=== PATIENT | female | born 1950 | race Caucasian/White ===

== ENCOUNTER → 2020-02-12 09:03 | Outpatient (CLI) | payer MEDICARE, SELFPAY ==
--- NOTE | ~2020-02-12 | XR_ITS ---
EXAMINATION: HAND-ANUPAM ARTHRITIS 3+VIEWS DATE: 02/12/2020 09:19 INDICATION: Joint pain and swelling in the hands. TECHNIQUE: Posteroanterior, lateral, and oblique views of the left and of the right hands as well as a ballcatchers view of both hands were obtained. COMPARISON: None. FINDINGS: No fracture or traumatic malalignment. Polyarticular osteoarthritis in the bilateral hands characteri zed by nonuniform joint space narrowing and marginal osteophyte formation. This is advanced at multip le interphalangeal joints where there are also central erosions with gullwing configuration at the ba se of multiple phalanges consistent with erosive osteoarthritis. There is secondary mild dorsal/ulnar subluxation at the bilateral third proximal interphalangeal joints. Additional severe osteoarthritis at the bilateral first carpometacarpal, left triscaphe and several bilateral metacarpophalangeal mana nts. Mild osteoarthritis at the right triscaphe joint and at the bilateral wrists joints. Chondrocalc inosis is seen in the region of the left hydronephrosis cartilage complex. There are multiple scatter ed small lucent lesions with thin sclerotic margins and majority underlying articular surfaces likely representing degenerative subchondral cysts. There are however couple of the ulnar styloid processes which would be more atypical and could be related to chronic erosions. IMPRESSION: 1. 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 2. Likely chronic erosions at the bilateral ulnar styloid processes which along with the chondrocalci nosis at the left wrist suggests suggesting possible superimposed crystalline arthropathy such as gou t or calcium pyrophosphate deposition (CPPD) disease. Reviewed, dictated and finalized at location A. IMPRESSION: 1. 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 2. Likely chronic erosions at the bilateral ulnar styloid processes which along with the chondrocalcinosis at the left wrist suggests suggesting possible supe rimposed crystalline arthropathy such as gout or calcium pyrophosphate depositi on (CPPD) disease.
== END ==
PROVIDERS: PCP Family Medicine; Visit Provider Family Medicine
DX: M19.041 Primary osteoarthritis, right hand (principal); M19.042 Primary osteoarthritis, left hand
CPT/HCPCS: 73130

== ENCOUNTER 2020-07-20 13:30 | Outpatient (RCR) | payer MEDICARE, SELFPAY ==
[2020-07-20] MEDS: FAMOTIDINE 20 MG TABLET PO (13:25)
[2020-07-20] MEDS: diphenhydrAMINE HCl CAP 25 MG CAPSULE PO (13:26)
[2020-07-20] MEDS: ACETAMINOPHEN 325 MG TABLET 650 MG PO (13:26)
--- NOTE | 2020-07-20 13:30 | PC.NURSE ---
Patient with mild headache, productive cough of yellow phlegm.
[2020-07-20 14:02] VITALS: BP 144/97; PULSE 72; RESP 18; TEMP 36.7; O2SAT 97
--- NOTE | 2020-07-20 14:38 | PC.NURSE ---
Patient given Bamlanivimab discharge and facts sheet with understanding stated by patient.
[2020-07-20 15:30] VITALS: BP 153/85
--- NOTE | 2020-07-20 16:21 | PC.NURSE ---
Bamlanivimab started at 1415 and ended at 1515.
--- NOTE | 2020-07-21 15:13 | PC.NURSE ---
Patient had chills, rigors, and fever after infusion at approximately 8 pm at home. Patient took Tylenol and Benadryl and symptoms went away after approximately 2 hours . Patient did talk to primary care physician, Dr Spain. Patient today feels the same as she did yesterday at infusion time-productive cough, nasal drainage, and headache.
== END 2020-08-02 11:23 ==
LOC: AMCINF 13:30
PROVIDERS: PCP Family Medicine; Visit Provider Family Medicine
DX: Z23 Encounter for immunization (principal); U07.1 COVID-19; I10 Essential (primary) hypertension; Z85.3 Personal history of malignant neoplasm of breast
CPT/HCPCS: A9270; J7050; M0239; Q0239

== ENCOUNTER → 2021-02-25 02:31 | Outpatient (CLI) | payer MEDICARE, SELFPAY ==
[2021-02-25 20:11] LABS: SARS-CoV-2 RNA PCR Negative
== END ==
PROVIDERS: PCP Family Medicine; Visit Provider Family Medicine
DX: R05 Cough (principal); R11.0 Nausea; R09.89 Other specified symptoms and signs involving the circulatory and respiratory systems; Z20.822 Contact with and (suspected) exposure to COVID-19
CPT/HCPCS: C9803; U0003; U0005

== ENCOUNTER → 2021-11-03 14:41 | Outpatient (CLI) | payer MEDICARE, SELFPAY ==
--- NOTE | ~2021-11-03 | MR_ITS ---
. EXAMINATION: MR lumbar spine wo con DATE: 11/03/2021 15:20 INDICATION: Spinal stenosis, lumbosacral region. TECHNIQUE: Magnetic resonance imaging (MRI) of the lumbar spine was performed without intravenous con trast. Sequences included sagittal T2-weighted FSE, sagittal T2-weighted FS FSE, sagittal T1-weighted FSE, and axial T2-weighted FSE. COMPARISON: Lumbar spine MRI 02/26/2014 FINDINGS: There is 4 mm retrolisthesis of L1 on L2, 7 mm retrolisthesis of L2 on L3, 6 mm anterolisth esis of L3 on L4, and 9 mm anterolisthesis of L4 on L5. There is mildly decreased disc height at T12- L1 and severely decreased disc height from L1-L2 through L4-L5. There is interbody fusion at L3-L4 an d L4-L5. There are changes of anterior fusion procedure at L5-S1 with interbody devices and healed in terbody bone graft. There are changes of posterior fusion procedure from L3 to S1 with pedicle screws . The distal spinal cord signal intensity is normal. The conus medullaris is at L1. The following dis c levels are specifically discussed: T12-L1: There is a central extrusion. There is no facet joint osteoarthritis. There is no neural fora wayne stenosis. There is mild central canal stenosis. L1-L2: The disc is bulging and has an annular fissure. There is severe bilateral facet joint osteoart hritis. There is moderate right and mild left neural foraminal stenosis. There is mild central canal stenosis. L2-L3: The disc is bulging and has an annular fissure. There is severe bilateral facet joint osteoart hritis. There is severe bilateral neural foraminal stenosis. There is mild bilateral central canal st enosis. There is moderate stenosis of left lateral recess. L3-L4: There is moderate bilateral facet joint hypertrophy. There is moderate right and mild left wei ral foraminal stenosis. There is mild central canal stenosis. L4-L5: There is mild bilateral facet joint hypertrophy. There is mild bilateral neural foraminal sten osis. There is no central canal stenosis. There is posterior decompression. L5-S1: There is no facet joint hypertrophy. There is no neural foraminal stenosis. There is no centra l canal stenosis. IMPRESSION: 1. Severe lumbar spondylosis, worsened from 02/26/2014. 2. Posterior fusion procedure from L3 to S1. Anterior fusion from L3 to S1. Reviewed, dictated and finalized at location A.
== END ==
PROVIDERS: PCP Family Medicine; Visit Provider Family Medicine
DX: Z98.1 Arthrodesis status (principal); M47.815 Spondylosis without myelopathy or radiculopathy, thoracolumbar region; M48.05 Spinal stenosis, thoracolumbar region; M47.817 Spondylosis without myelopathy or radiculopathy, lumbosacral region; M48.07 Spinal stenosis, lumbosacral region
CPT/HCPCS: 72148

== ENCOUNTER 2022-02-15 16:35 | Emergency (ER) | payer MEDICARE, SELFPAY ==
[2022-02-15] VITALS (7 sets, daily range): BP systolic 65–126; BP diastolic 37–81; PULSE 48–67; RESP 14–31; TEMP 35.9; O2SAT 96–98
--- NOTE | ~2022-02-15 | XR_ITS ---
EXAM: XR pelvis 1-2V DATE: 02/15/2022 18:10 HISTORY: Fall this P.M. . COMPARISON: 09/27/2006. FINDINGS: Incompletely visualized lumbar fusion hardware. Decreased mineralization. No fracture or di slocation. No lytic or blastic lesion. Joint spaces are maintained. No erosion or periosteal change. Soft tissues within normal limits. IMPRESSION: No acute osseous finding in the pelvis. Reviewed, dictated and finalized at location K.
--- NOTE | ~2022-02-15 | CT_ITS ---
EXAMINATION: CT facial & cervical spine wo DATE: 02/15/2022 17:44 INDICATION: fall TECHNIQUE: Computed tomography (CT) of the maxillofacial region and cervical spine was performed with out intravenous contrast. Automated exposure control and iterative reconstruction technique were empl oyed. The dose-length product was 443.23 mGy-cm. COMPARISON: None FINDINGS: CERVICAL: Vertebral Body Alignment: Presumed degenerative 1-2 mm anterolistheses of C3 on C4, C4 on C5, and C7 on T1, otherwise intact. Craniocervical and atlantoaxial alignment: Moderate degenerative change. Alignment intact. Osseous structures/fracture: No evidence of a lytic or blastic process in the visualized spine. No e vidence of acute fracture. Cervical soft tissues: The paraspinal soft tissues planes are maintained. Aortic arch ectasia and gregoria cification. Degenerative changes: Multilevel severe degenerative disc disease, with fusion from C4 to C6. Multile damian severe left-sided neural foraminal narrowing. No severe central canal narrowing. FACE: Soft Tissues: Mild left frontal soft tissue swelling. Facial bones: No acute fracture. No lytic or blastic process. Eyes: The globes are intact. The soft tissue planes of the orbits are maintained. Bilateral lens re placements. Paranasal Sinuses: Complete opacification of the right maxillary sinus, otherwise the visualized aer ated spaces are clear. Foreign Bodies: No radiopaque foreign bodies. Other Findings: None. IMPRESSION: No acute fracture or traumatic malalignment in the cervical spine. No acute facial bone fracture. Reviewed, dictated and finalized at location K. IMPRESSION: No acute fracture or traumatic malalignment in the cervical spine. No acute fac ial bone fracture.
--- NOTE | ~2022-02-15 | CT_ITS ---
EXAMINATION: CT brain wo con DATE: 02/15/2022 17:43 INDICATION: fall . TECHNIQUE: Computed tomography (CT) of the head was performed without intravenous contrast. The mA wa s adjusted according to patient size. Iterative reconstruction technique was employed. The dose-lengt h product was 605.33 mGy-cm. COMPARISON: None FINDINGS: No acute intracranial hemorrhage or extra-axial fluid collection. No hydrocephalus, mass, or herniation. No acute ischemic infarct. Unremarkable dural venous sinus attenuation. No acute osseous abnormality. Small left frontal contusion. Right maxillary opacification, otherwise the aerated spaces are clear. Mild atrophy and chronic white matter change. Atherosclerotic intracranial calcification. Bilateral l ens replacements. IMPRESSION: No acute intracranial process. Reviewed, dictated and finalized at location K.
--- NOTE | ~2022-02-15 | XR_ITS ---
EXAMINATION: XR chest 1V portable Exam Date/Time: 02/15/2022 17:58 CDT HISTORY: Fall; hx of breast CA Comparison: 11/20/2017. RESULT: Lines, tubes, and devices: Left axillary clips. Lungs and pleura: Clear. Cardiomediastinal silhouette: Stable. Other: No acute osseous or upper abdominal finding. IMPRESSION: No acute cardiopulmonary process. Reviewed, dictated and finalized at location K.
--- NOTE | ~2022-02-15 | CT_ITS ---
EXAMINATION: CT thoracic spine wo con DATE: 02/15/2022 17:44 INDICATION: Fall . TECHNIQUE: Computed tomography (CT) of the thoracic spine was performed without intravenous contrast. Automated exposure control and iterative reconstruction technique were employed. The dose-length pro duct was 1214.99 mGy-cm. COMPARISON: None FINDINGS: Minimal grade 1 anterolistheses of C7 on T1, and T3 on T4, otherwise the vertebral body alignment is intact. Vertebral body heights preserved. Multilevel degenerative disc space narrowing, marginal oste ophytosis, with scattered erosive changes, most severe at T2-3. No traumatic malalignment or fracture . Visualized lung parenchyma is clear. Multilevel facet arthropathy Mild aortic, mitral, and coronary calcifications. Aortic arch atherosclerotic calcification. Simple and hemorrhagic/proteinaceous righ t mid pole cysts. The upper portion of lumbar fusion hardware is seen at the margin of the images. IMPRESSION: No acute fracture or traumatic malalignment in the thoracic spine. Reviewed, dictated and finalized at location K.
--- NOTE | 2022-02-15 16:56 | ECG_ITS ---
Measurements Intervals [place] Rate: 46 P: 42 [place]: 179 QRS: 3 QRSD: 107 T: 12 QT: 501 QTc: 442 Interpretive Statements SINUS BRADYCARDIA OTHERWISE NORMAL NO PREVIOUS ECG AVAILABLE FOR COMPARISON Electronically Signed On 02-15-2022 18:47:57 CDT by Samanta Valderrama M.D.
[2022-02-15 17:14] LABS: Basophils Absolute Auto 0.1 K/mm3 (0.0-0.1); Basophils Percent Auto 0.7 % (0.2-1.2); Eosinophils Absolute Auto 0.1 K/mm3 (0-0.3); Eosinophils Percent Auto 1.7 % (0-4.4); Hematocrit 37.5 % (37.0-47.0); Hemoglobin 12.1 g/dL (12.0-15.0); Immature Granulocyte Absolute 0.03 K/mm3 (0.00-0.031); Immature Granulocyte Percent A 0.4 % (0-0.5); Lymphocytes Absolute Auto 1.85 K/mm3 (0.9-3.2); Lymphocytes Percent Auto 21.9 % (18.3-44.2); Mean Corpuscular HGB Conc 32.3 g/dl (32-36); Mean Corpuscular Hemoglobin 30.1 pg (26-34); Mean Corpuscular Volume 93.3 fl (80-100); Mean Platelet Volume 10.8 fl (7.4-10.4); Monocytes Absolute Auto 0.7 K/mm3 (0.1-0.6); Monocytes Percent Auto 8.6 % (2.6-8.5); Neutrophils Absolute Auto 5.6 K/mm3 (1.3-6.7); Neutrophils Percent Auto 66.7 % (45.5-73.1); Platelet Count Result 200 k/mm3 (150-375); Red Blood Count 4.02 M/mm3 (4.2-5.4); Red Cell Distribution Width 13.3 % (11.5-14.5); White Blood Count 8.4 K/mm3 (4.5-10.0)
[2022-02-15 17:21] LABS: Alanine Aminotransferase 24 U/L (6-35); Alkaline Phosphatase 58 U/L (38-126); Anion Gap 10 mmol/L (8-16); Aspartate Amino Transferase 32 U/L (14-36); Bilirubin,Total 0.5 mg/dL (0.2-1.3); Blood Urea Nitrogen 30 mg/dL (7-17); Carbon Dioxide 27 mmol/L (22-30); Chloride 94 mmol/L (98-107); Estimated CRCL calculation 43 ml/min; Estimated Glomerular Filt Rate 54; Glucose 115 mg/dL (65-110); Potassium 3.2 mmol/L (3.4-5.0); Sodium 131 mmol/L (137-145)
--- NOTE | 2022-02-15 17:28 | PC.NURSE ---
Pt in CT at this time
[2022-02-15] MEDS: HYDROcodone/acetaminophen (*CRX) 5-325 MG TABLET 1 TAB PO (17:48)
--- NOTE | 2022-02-15 18:44 | PC.NURSE ---
called to add on trop baseline @1545 -NC
--- NOTE | 2022-02-15 18:47 | PC.NURSE ---
C collar removed at this time
[2022-02-15 19:40] LABS: Troponin I < 0.012 ng/mL (0.000-0.034)
--- NOTE | 2022-02-15 21:18 | ED.GENADULT ---
HPI - General Adult General Chief complaint: Fall Stated complaint: lip lac, head/neck pain Time Seen by Provider: 02/15/22 16:59 History of Present Illness HPI narrative: This is a 71-year-old female presenting to ED with a cut on her upper lip. Patient was attempting to move a diverticulosis of water when she lost her balance and fell face 1st into the edge. She has a small laceration over her lip on the left side. The patient is up-to-date on her tetanus shot. She is currently complaining of neck pain and shoulder pain. While she was in the lobby the patient had a presyncopal event. Before the event occurred she felt plumbing drafter her ears and then sat down without ever losing consciousness. She did not strike her head have any injuries. She quickly returned to her baseline. Patient has a well-documented history of vasovagal syncope and has been worked up by her tailer in in the past. The patient denies any other complaints at this time. Related Data Home Medications Medication Instructions Recorded Confirmed calcium carbonate 600 mg calcium 600 mg PO DAILY 11/04/19 01/10/22 (1,500 mg) tablet (Calcium) raloxifene 60 mg tablet 60 mg PO DAILY 03/02/21 01/10/22 levocetirizine 5 mg tablet (Xyzal) 5 mg PO DAILY 01/10/22 01/10/22 Allergies Allergy/AdvReac Type Severity Reaction Status Date / Time adhesive tape Allergy Unknown Rash Verified 02/15/22 16:48 cephalexin Allergy Unknown throat Verified 02/15/22 16:48 closing diazepam Allergy Unknown mental Verified 02/15/22 16:48 status change Penicillins Allergy Unknown unknown Verified 02/15/22 16:48 Review of Systems Review of Systems: CONSTITUTIONAL: Denies night sweats. EYES: No eye pain ENT: Denies rhinorrhea CARDIOVASCULAR: Denies palpitations RESPIRATORY: Denies hemoptysis GASTROINTESTINAL: Denies hematemesis GENITOURINARY: Denies hematuria. SKIN: Denies rash MUSCULOSKELETAL: Denies myalgia. NEUROLOGIC: Denies weakness. PSYCHIATRIC: Denies delusions PMFSH Past Medical History Medical History Arthralgia of hand Atypical chest pain Chest pain COVID-19 Drug-induced polyneuropathy Hepatitis C antibody test negative (03/11/19) HX: breast cancer Surgical History Surgical History Hx of breast biopsy negative Family History Family History Father Family history of glaucoma Family history of Alzheimer's disease Family history of dementia, Onset Age: 80 Mother Family history of glaucoma Hypertension Cerebrovascular accident Sibling Family history of glaucoma Malignant neoplasm of prostate Family history of malignant neoplasm of breast in first degree relative Other Family history of elevated blood lipids Family history of malignant neoplasm of breast Social History Social History Second hand tobacco smoke exposure: No Alcohol intake: current Drinks per week: 4 Substance use type: does not use Gender identity (if verbalized by the patient): Female Sexual Orientation (if Verbalized by the Patient): Straight or Heterosexual Spiritual care concerns: No Agree to blood products: Yes Exam Narrative: APPEARANCE: No apparent distress. Patient is lying in bed the C-collar on. Head 1.5 cm vertical laceration over the left upper lip crossing the vermilion border. EYES: PERRLA/EOMI, NOSE: Normal no drainage NECK: Supple, Trachea midline , midline cervical tenderness. RESPIRATORY: CTAB, No increased work of breathing. CARDIOVASCULAR: S1S2 appreciated ABDOMINAL: Soft, nontender, nondistended, MUSCULOSKELETAl: No obvious deformities NEURO: Alert. Cranial nerves 2-12 grossly intact. Sensation light touch, motor function cerebellar function intact for 4 extremities. Gait exam was deferred S
== END 2022-02-15 20:20 | disposition left against medical advice (07) ==
PROVIDERS: Emergency Medicine; Emergency Provider Emergency Medicine; PCP Family Medicine
DX: S01.511A Laceration without foreign body of lip, initial encounter (principal); R55 Syncope and collapse; R00.1 Bradycardia, unspecified; F17.210 Nicotine dependence, cigarettes, uncomplicated; Z86.16 Personal history of COVID-19; Z85.3 Personal history of malignant neoplasm of breast; W19.XXXA Unspecified fall, initial encounter
CPT/HCPCS: 12011; 36415; 70450; 70486; 71045; 72125; 72128; 72170; 80053; 84484; 85025; 93005; 99284; A9270

== ENCOUNTER 2022-12-06 13:30 | Outpatient (RCR) | payer MEDICARE, SELFPAY ==
--- NOTE | 2022-10-02 13:44 | PTOPEVAL1 ---
Assessment and note entered by Shell Schaefer, PT, DPT Evaluation Information Assessment Status Evaluation Diagnosis gait abnormalities Onset multiple years Subjective Information Pt states she does not walk like a normal person. She states she has a L2-S1 lumbar fusion, and a L TKA in Apr. Pt states she waddles when she walks and walking does not feel normal. She reports feeling unstable on her feet, avoids walking on uneven surfaces, and has had a couple of falls, her most recent in February of last year. Reported Pain Level Pain Score 0: Self Report Assessment PT Clinical Summary Vee presents to therapy today for her initial evaluation with a diagnosis of gait and balance deviations. Today she demonstrates baljeet LE weakness , particularly in her hips that is likely adding to her gait deviations. She demonstrates decreased balance and according to the GALLAGHER balance assessment is at an increased risk for falls. Skilled physical therapy services are indicated to address balance and strength deficits, to improve functional mobility, improve safety, and to promote functional independence. Plan of Care Interventions Gait Training,Hot Pack/Cold Pack,Manual Therapy, Neuro Re-education,Patient/Caregiver Educati, Therapeutic Activities,Therapeutic Exercise PT Services Indicated Yes Treatment Frequency and 2x/wk for 4 wks Duration These treatments will address the objective and functional deficits as defined above. The patient will be advanced safely and appropriately in order for the patient to progress towards his/her prior level of function. Additional exercises will be introduced and as well as a comprehensive home exercise program upon discharge, if needed, ?to ensure carryover of functional gains achieved in the clinic. This treatment plan has been reviewed and agreement upon by the patient.
--- NOTE | 2022-10-30 16:47 | PTOPPROG ---
Assessment and note entered by Shell Schaefer, PT, DPT Evaluation Information Assessment Status Progress Diagnosis gait abnormalities Onset multiple years Subjective Information Pt states she has learned a lot with therapy. She states she is progressing with therapy but not where she needs to be yet. She reports fair compliance with her HEP. Pt reports 20-30% improvement in overall symptoms. Assessment PT Clinical Summary Vee presents to therapy today for her progress report following 8 visits of skilled therapy to treat her gait abnormalities. Today she demonstrates an improved distance during the 2 min walk test from 355ft to 435ft but without an improvement in gait deviations. She demonstrates an improved GALLAGHER balance score from 42/56 to 47/56 . She continues to have moderate weakness throughout her BLEs. Continuation of skilled therapy services are indicated to continue improving strength, balance, mobility, and endurance, and to improve overall functional independence. Plan of Care Interventions Gait Training,Hot Pack/Cold Pack,Manual Therapy, Neuro Re-education,Patient/Caregiver Educati, Therapeutic Activities,Therapeutic Exercise PT Services Indicated Yes Treatment Frequency and 2x/wk for 4 wks Duration These treatments will address the objective and functional deficits as defined above. The patient will be advanced safely and appropriately in order for the patient to progress towards his/her prior level of function. Additional exercises will be introduced and as well as a comprehensive home exercise program upon discharge, if needed, ?to ensure carryover of functional gains achieved in the clinic. This treatment plan has been reviewed and agreement upon by the patient.
--- NOTE | 2022-12-06 14:44 | PTOPPROG ---
Assessment and note entered by Shell Schaefer, PT, DPT Evaluation Information Assessment Status Progress Diagnosis gait abnormalities Onset multiple years Subjective Information Pt states she is improving, she states her left knee is getting stronger and she is doing stairs more easily. She also states she can walk normally for about 30 steps prior to getting tired and starting to compensate again. Pt reports 50-60% improvement in overall symptoms. She states she is lacking muscular endurance. Assessment PT Clinical Summary Vee presents to therapy today for her progress report following 16 visits of skilled therapy to treat her gait abnormalities. Today she demonstrates improve hip and knee strength, improve standing balance, and improved ability to ambulate stairs. She continues to require increased UE support for stairs and continues to have a strong Trendelenburg pattern during ambulation. She is making continuous progress towards her goals. Continuation of skilled services are indicated to continue progressing strength, balance, mobility, and to return to PLOF . Plan of Care Interventions Gait Training,Hot Pack/Cold Pack,Manual Therapy, Neuro Re-education,Patient/Caregiver Educati, Therapeutic Activities,Therapeutic Exercise PT Services Indicated Yes Treatment Frequency and 1x/wk for 4 wks Duration These treatments will address the objective and functional deficits as defined above. The patient will be advanced safely and appropriately in order for the patient to progress towards his/her prior level of function. Additional exercises will be introduced and as well as a comprehensive home exercise program upon discharge, if needed, ?to ensure carryover of functional gains achieved in the clinic. This treatment plan has been reviewed and agreement upon by the patient.
--- NOTE | 2022-12-13 14:01 | PCPTNOTE ---
Patient called to cancel, had a test this morning and was in a fib. Will be in touch about the rest of her appointments.
--- NOTE | 2022-12-27 10:48 | PCPTNOTE ---
Patient canceled this date due to having surgery. Will follow up with patient and therapist to discuss plan of care.
--- NOTE | 2022-12-29 15:52 | PCPTNOTE ---
This treatment is being continued on visit number [id number]. Please see documentation on both accounts to view progress. Completed interventions, outcomes, and problems have been marked as Inactive to facilitate the copying of the Care plan routine for recurring accounts.
== END 2022-12-28 14:55 | disposition still patient (30) ==
LOC: ANHGOSHPT 13:30
PROVIDERS: PCP Family Medicine; Visit Provider Family Medicine
DX: R26.9 Unspecified abnormalities of gait and mobility (principal)
CPT/HCPCS: 97110; 97112; 97116; 97161; 97530

== ENCOUNTER 2022-12-26 13:55 | Day surgery (SDC) | payer MEDICARE, SELFPAY ==
[2022-12-25 13:56] VITALS: BMI 37.2
[2022-12-26] VITALS (7 sets, daily range): BP systolic 137–156; BP diastolic 87–113; PULSE 70–89; RESP 15–20; TEMP 36.6; O2SAT 97–99; BMI 37.2
--- NOTE | 2022-12-26 13:00 | ECG_ITS ---
Measurements Intervals [place] Rate: 85 P: RI: 0 QRS: -15 QRSD: 93 T: 39 QT: 376 QTc: 449 Interpretive Statements ATRIAL FIBRILLATION ABNORMAL RHYTHM ECG COMPARED TO ECG 02/15/2022 16:59:39 ATRIAL FIBRILLATION NOW PRESENT Electronically Signed On 12-26-2022 16:21:13 CDT by Scout Dillon M.D.
--- NOTE | 2022-12-26 14:16 | WPDHPUPDATE1 ---
History and Physical Update Update Date/Time: 12/26/22 14:16 History and Physical has been reviewed, including an updated exam of the patient. There are NO changes in the patient's condition. Vee Potts Is a 72-year-old female who sees Dr. Lebron for a coronary myocardial bridge hypertension, hyperlipidemia and vasovagal near-syncope. On her last visit 12/13/2022 she was found to have atrial fibrillation, new head of uncertain duration with a mildly rapid rate. Her metoprolol was increased from 25-50 mg daily and Eliquis was added. She is here for a ANDREW guided cardioversion. Risks, benefits, and alternatives have been discussed and questions answered. Patient agrees to proceed with procedure.
--- NOTE | 2022-12-26 14:17 | WPDMODSED ---
Moderate Sedation Note-Pt Data Patient Data Diagnosis: Recent onset of atrial fibrillation History of vasovagal syncope which occurs postop and at other times. History of hypertension Present Complaint: fatigue, poor endurance, recent onset AFib Procedure to be performed/Plan: Sedation with anesthesia ANDREW guided cardioversion Allergies Allergy/AdvReac Type Severity Reaction Status Date / Time adhesive tape Allergy Unknown Rash Verified 12/26/22 13:31 cephalexin Allergy Unknown throat Verified 12/26/22 13:31 closing diazepam Allergy Unknown mental Verified 12/26/22 13:31 status change Penicillins Allergy Unknown unknown Verified 12/26/22 13:31 Home Medications Medication Instructions Recorded Confirmed Type nitroglycerin 0.3 mg sublingual 0.3 mg sublingual Q5M PRN chest 06/24/19 12/26/22 Rx tablet (Nitrostat) pain #20 tabs calcium carbonate 600 mg calcium 600 mg PO DAILY 11/04/19 12/26/22 History (1,500 mg) tablet (Calcium) raloxifene 60 mg tablet 60 mg PO DAILY 03/02/21 12/26/22 History levocetirizine 5 mg tablet (Xyzal) 5 mg PO DAILY 01/10/22 12/26/22 History diclofenac sodium 50 mg See Rx Instructions .Route 01/20/22 12/26/22 Rx tablet,delayed release .COMPLEX #180 tabs hydrochlorothiazide 12.5 mg tablet See Rx Instructions .Route 01/20/22 12/26/22 Rx .COMPLEX #90 tabs oxybutynin chloride 5 mg tablet See Rx Instructions .Route 02/21/22 12/26/22 Rx .COMPLEX #180 tabs atorvastatin 20 mg tablet See Rx Instructions .Route 06/02/22 12/26/22 Rx .COMPLEX #90 tabs cholecalciferol (vitamin D3) 50 50 mcg PO DAILY 06/09/22 12/26/22 History mcg (2,000 unit) capsule cpap #1 ea 12/06/22 12/06/22 Rx metoprolol succinate 25 mg 25 mg PO DAILY #90 tabs 12/06/22 12/26/22 Rx tablet,extended release 24 hr miscellaneous medical supply See Rx Instructions miscellaneous 12/06/22 12/26/22 Rx .COMPLEX #1 ea apixaban 5 mg tablet (Eliquis) 5 mg PO DAILY 12/26/22 12/26/22 History Current Medications: Active Medications Sodium Chloride (Normal Saline Iv) 1,000 mls @ 30 mls/hr IV CONT .Q24H MARIXA Sedation/Anesthesia: No previous sedation/anesthesia problems (including family history). [facility] Past Medical History Medical History (Updated 12/26/22 @ 14:19 by Samanta Valderrama MD) Arthralgia of hand Atrial fibrillation Atypical chest pain Chest pain COVID-19 Drug-induced polyneuropathy Hepatitis C antibody test negative (03/11/19) HX: breast cancer Syncope, vasovagal Surgical History Surgical History History of total left knee replacement (~04/2022) Hx of breast biopsy negative Family History Family History Father Family history of glaucoma Family history of Alzheimer's disease Family history of dementia, Onset Age: 80 Mother Family history of glaucoma Hypertension Cerebrovascular accident Sibling Family history of glaucoma Malignant neoplasm of prostate Family history of malignant neoplasm of breast in first degree relative Other Family history of elevated blood lipids Family history of malignant neoplasm of breast Social History Social History Smoking status: Never smoker Second hand tobacco smoke exposure: No Alcohol intake: current Drinks per week: 3 Substance use: never Substance use type: does not use Lack of Transportation: No Lack of Food: Never True Current Housing: I Have Housing Concerned About Future Housing: No Difficulty Paying Gas/Electric Bills: No Difficulty Paying for Meds: No Currently Unemployed: No Education: Master's Degree or Higher Difficulty w/ Childcare or Family Care: No Living arrangements: with family Occupation/Education: retired Gender identity (if verbalized by the patient): Female Sexual Orientation (if Verbalize
[2022-12-26 15:03] LABS: Anion Gap 6 mmol/L (8-16); Blood Urea Nitrogen 26 mg/dL (7-17); Calcium 8.7 mg/dL (8.4-10.2); Carbon Dioxide 26 mmol/L (22-30); Chloride 103 mmol/L (98-107); Estimated CRCL calculation 59 ml/min; Estimated Glomerular Filt Rate > 60; Glucose 83 mg/dL (65-110); Magnesium 1.9 mg/dL (1.6-2.3); Potassium 3.7 mmol/L (3.4-5.0); Sodium 135 mmol/L (137-145)
--- NOTE | 2022-12-26 15:18 | WPDANESEPPF ---
Anes - Initial Pre Proc Eval Procedure: Operation Date: 12/21/22 11:00 Proposed Procedures p Trans Esophageal Echo - Lenny Lebron MD s Electrical Cardioversion - Lenny Lebron MD Operation Date: 12/26/22 14:30 Proposed Procedures p Trans Esophageal Echo - Samanta Valderrama MD s Electrical Cardioversion - Samanta Valderrama MD Date/Time: 12/26/22 15:18 Surgeon: Lenny Lebron MD Pre Op Diagnosis: A-fib(RVR) Patient Data Age: 72 Gender: F Height: 1.52 m Weight: 86.4 kg Last Vital Signs Temp 97.8 F 12/26/22 13:37 Pulse 85 12/26/22 13:37 Resp 18 12/26/22 13:37 BP 156/112 H 12/26/22 13:37 Pulse Ox 99 12/26/22 13:37 O2 Del Method Room Air 12/26/22 13:37 Allergies Allergy/AdvReac Type Severity Reaction Status Date / Time adhesive tape Allergy Unknown Rash Verified 12/26/22 13:31 cephalexin Allergy Unknown throat Verified 12/26/22 13:31 closing diazepam Allergy Unknown mental Verified 12/26/22 13:31 status change Penicillins Allergy Unknown unknown Verified 12/26/22 13:31 Home Medications Medication Instructions Recorded Confirmed Type nitroglycerin 0.3 mg sublingual 0.3 mg sublingual Q5M PRN chest 06/24/19 12/26/22 Rx tablet (Nitrostat) pain #20 tabs calcium carbonate 600 mg calcium 600 mg PO DAILY 11/04/19 12/26/22 History (1,500 mg) tablet (Calcium) raloxifene 60 mg tablet 60 mg PO DAILY 03/02/21 12/26/22 History levocetirizine 5 mg tablet (Xyzal) 5 mg PO DAILY 01/10/22 12/26/22 History diclofenac sodium 50 mg See Rx Instructions .Route 01/20/22 12/26/22 Rx tablet,delayed release .COMPLEX #180 tabs hydrochlorothiazide 12.5 mg tablet See Rx Instructions .Route 01/20/22 12/26/22 Rx .COMPLEX #90 tabs oxybutynin chloride 5 mg tablet See Rx Instructions .Route 02/21/22 12/26/22 Rx .COMPLEX #180 tabs atorvastatin 20 mg tablet See Rx Instructions .Route 06/02/22 12/26/22 Rx .COMPLEX #90 tabs cholecalciferol (vitamin D3) 50 50 mcg PO DAILY 06/09/22 12/26/22 History mcg (2,000 unit) capsule cpap #1 ea 12/06/22 12/06/22 Rx metoprolol succinate 25 mg 25 mg PO DAILY #90 tabs 12/06/22 12/26/22 Rx tablet,extended release 24 hr miscellaneous medical supply See Rx Instructions miscellaneous 12/06/22 12/26/22 Rx .COMPLEX #1 ea apixaban 5 mg tablet (Eliquis) 5 mg PO DAILY 12/26/22 12/26/22 History Laboratory Tests 12/26/22 12/26/22 14:03 14:36 Sodium Pending 135 L mmol/L (137-145) Potassium Pending 3.7 mmol/L (3.4-5.0) Chloride Pending 103 mmol/L (98-107) Carbon Dioxide Pending 26 mmol/L (22-30) Anion Gap Pending 6 L mmol/L (8-16) BUN Pending 26 H mg/dL (7-17) Creatinine Pending 0.70 mg/dL (0.7-1.0) Estim Creat Clear Calc Pending 59 ml/min Estimated GFR Pending > 60 (59 - ) Glucose Pending 83 mg/dL (65-110) Calcium Pending 8.7 mg/dL (8.4-10.2) Magnesium Pending 1.9 mg/dL (1.6-2.3) Patient hx anesthesia problems: none Family hx anesthesia problems: none Results Review: All pre-operative results and documents have been reviewed as part of the pre-operative evaluation. [facility] Past Medical History Medical History (Updated 12/26/22 @ 14:19 by Samanta Valderrama MD) Arthralgia of hand Atrial fibrillation Atypical chest pain Chest pain COVID-19 Drug-induced polyneuropathy Hepatitis C antibody test negative (03/11/19) HX: breast cancer Syncope, vasovagal Surgical History Surgical History History of total left knee replacement (~04/2022) Hx of breast biopsy negative Family History Family History Father Family history of glaucoma Family history of Alzheimer's disease Family history of dementia, Onset Age: 80 Mother Family history of glaucoma Hypertension Cerebrovascular accident Sibling F
--- NOTE | 2022-12-26 15:52 | PM.OP ---
Procedure Note - Brief Procedure Note - Brief Date of procedure: 12/26/22 A-fib(RVR) Post-op diagnosis: Other ( AFib, clot in the left atrial appendage) Procedure performed: sedation with anesthesia Transesophageal echo Surgeon: Samanta Valderrama MD Description of procedure: ANDREW showed a mobile mass, thrombus, the left atrial appendage. No cardioversion was performed. The ANDREW was quite abbreviated as the patient became hypoxic and anesthesia request to ANDREW probe to be removed. Complications: No immediate complications (Other than transient hypoxia) Condition: Stable Disposition: Observation
--- NOTE | 2022-12-26 15:54 | P.OP_ITS ---
Procedure Note - Detailed Date of Procedure 12/26/22 Pre-op Diagnosis A-fib(RVR) Post-op Diagnosis Other ( AFib, left atrial appendage thrombus) Procedure Performed Sedation with Anesthesia Transesophageal echo Cardioversion cancelled Surgeon Samanta Valderrama MD Anesthesia MAC ( see anesthesia flow sheet) Indications symptomatic AFib of recent onset Findings Left atrial appendage thrombus, mobile. Grossly normal left ventricular function. Transient hypoxia and rapid atrial fib rate Cardioversion cancelled. PLAN: Continue Eliquis 5 mg BID FU w/ Dr. Lebron to determine if another attempt at cardioversion is recommended after at least 4 weeks of anticoagulation. Anesthesia thought it would be reasonable from their point of view, perhaps w/ a change in anesthetics . Description of Procedure Procedure: After informed consent the patient had Hurricaine spray the hypopharynx. The patient had anesthesia as described in anesthesia flow sheet. The transesophageal echo probe was introduced in the esophagus without difficulty. Imaging was obtained in multiplane views. The procedure was very abbreviated as the patient became hypoxic and hypopnec, with O2 saturation dropping down into the 50s and 60s, required Ambu bagging and increased O2. The probe was immediately removed. Findings: The left atrium was mildly dilated. There was some mild spontaneous contrast noted. In addition there was a 0.8 X 1.3 oblong mobile mass seen in the left atrial appendage. This was not investigated well as the patient became hypoxic. The left ventricle and valves were not evaluated any detail although the mitral valve appeared grossly normal and the left ventricular function was grossly normal. No Doppler was done. The patient had transient rapid ventricular rate but no problems w/ low blood pressure. Complications No immediate complications (Transient hypoxia required Ambu bagging noted) Condition Stable Disposition Observation
== END 2022-12-26 16:58 | disposition home or self-care (01) ==
PROVIDERS: Internal Medicine Cardiovascular Disease; PCP Family Medicine; Visit Provider Internal Medicine Cardiovascular Disease
PROC: (CPT 93312; principal; 2022-12-26 14:30)
DX: I48.91 Unspecified atrial fibrillation (principal); I51.3 Intracardiac thrombosis, not elsewhere classified; R09.02 Hypoxemia; Z53.09 Procedure and treatment not carried out because of other contraindication; Z79.01 Long term (current) use of anticoagulants; G62.0 Drug-induced polyneuropathy; Z85.3 Personal history of malignant neoplasm of breast; E66.9 Obesity, unspecified; Z68.37 Body mass index [BMI] 37.0-37.9, adult
CPT/HCPCS: 36415; 80048; 83735; 93312; 93320; 93325; J2704

== ENCOUNTER 2023-01-29 02:08 | Day surgery (SDC) | payer MEDICARE, SELFPAY ==
--- NOTE | 2023-01-26 18:10 | WPDANESEPP ---
Anes - Eval Pre Procedure Procedure: Operation Date: 01/29/23 14:30 Proposed Procedures p Trans Esophageal Echo - Lenny Lebron MD s Possible Electrical Cardioversion - Lenny Lebron MD Date/Time: 01/26/23 18:10 Pre Op Diagnosis: a- fib rvr Patient Data Age: 72 Gender: F Height: Weight: Allergies Allergy/AdvReac Type Severity Reaction Status Date / Time adhesive tape Allergy Unknown Rash Verified 01/26/23 15:44 cephalexin Allergy Unknown throat Verified 01/26/23 15:44 closing diazepam Allergy Unknown mental Verified 01/26/23 15:44 status change Penicillins Allergy Unknown unknown Verified 01/26/23 15:44 Home Medications Medication Instructions Recorded Confirmed Type nitroglycerin 0.3 mg sublingual 0.3 mg sublingual Q5M PRN chest 06/24/19 01/26/23 Rx tablet (Nitrostat) pain #20 tabs calcium carbonate 600 mg calcium 600 mg PO DAILY 11/04/19 01/26/23 History (1,500 mg) tablet (Calcium) raloxifene 60 mg tablet 60 mg PO DAILY 03/02/21 01/26/23 History levocetirizine 5 mg tablet (Xyzal) 5 mg PO DAILY 01/10/22 01/26/23 History diclofenac sodium 50 mg See Rx Instructions .Route 01/20/22 01/26/23 Rx tablet,delayed release .COMPLEX #180 tabs hydrochlorothiazide 12.5 mg tablet See Rx Instructions .Route 01/20/22 01/26/23 Rx .COMPLEX #90 tabs atorvastatin 20 mg tablet See Rx Instructions .Route 06/02/22 01/26/23 Rx .COMPLEX #90 tabs cholecalciferol (vitamin D3) 50 50 mcg PO DAILY 06/09/22 01/26/23 History mcg (2,000 unit) capsule cpap #1 ea 12/06/22 12/06/22 Rx metoprolol succinate 25 mg 25 mg PO DAILY #90 tabs 12/06/22 01/26/23 Rx tablet,extended release 24 hr miscellaneous medical supply See Rx Instructions miscellaneous 12/06/22 01/26/23 Rx .COMPLEX #1 ea apixaban 5 mg tablet (Eliquis) 5 mg PO DAILY 12/26/22 01/26/23 History oxybutynin chloride 5 mg tablet See Rx Instructions .Route 01/03/23 01/26/23 Rx .COMPLEX #180 tabs semaglutide (weight loss) 0.25 0.25 mg (0.5 mL) subcut WEEKLY #2 01/03/23 01/26/23 Rx mg/0.5 mL subcutaneous pen mL injector (Wegovy) Patient hx anesthesia problems: none Family hx anesthesia problems: none Results Review: All pre-operative results and documents have been reviewed as part of the pre-operative evaluation. [facility] Past Medical History Medical History (Updated 12/26/22 @ 14:19 by Samanta Valderrama MD) Arthralgia of hand Atrial fibrillation Atypical chest pain Chest pain COVID-19 Drug-induced polyneuropathy Hepatitis C antibody test negative (03/11/19) HX: breast cancer Syncope, vasovagal Surgical History Surgical History History of total left knee replacement (~04/2022) Hx of breast biopsy negative Family History Family History Father Family history of glaucoma Family history of Alzheimer's disease Family history of dementia, Onset Age: 80 Mother Family history of glaucoma Hypertension Cerebrovascular accident Sibling Family history of glaucoma Malignant neoplasm of prostate Family history of malignant neoplasm of breast in first degree relative Other Family history of elevated blood lipids Family history of malignant neoplasm of breast Social History Social History Smoking status: Never smoker Second hand tobacco smoke exposure: No Alcohol intake: current Drinks per week: 2 Alcohol use details: maybe 2-3 per week Substance use: never Substance use type: does not use Lack of Transportation: No Lack of Food: Never True Current Housing: I Have Housing Concerned About Future Housing: No Difficulty Paying Gas/Electric Bills: No Difficulty Paying for Meds: No Currently Unemployed: No Education: Master's Degree or Higher Difficulty w/ Childcare or Family Care: No Living arrangements:
[2023-01-29 12:26] VITALS: BP 144/95; PULSE 90; RESP 14; TEMP 36.2; O2SAT 95; BMI 37.4
[2023-01-29 12:50] LABS: Anion Gap 8 mmol/L (8-16); Blood Urea Nitrogen 31 mg/dL (7-17); Calcium 8.7 mg/dL (8.4-10.2); Carbon Dioxide 28 mmol/L (22-30); Chloride 99 mmol/L (98-107); Estimated CRCL calculation 47 ml/min; Estimated Glomerular Filt Rate > 60; Glucose 93 mg/dL (65-110); Magnesium 1.8 mg/dL (1.6-2.3); Potassium 3.7 mmol/L (3.4-5.0); Sodium 135 mmol/L (137-145)
--- NOTE | 2023-01-29 13:30 | P.PNAN_ITS ---
Anes - Eval Final PreProcedure Day of Procedure 01/29/23 13:30 Patient weight: obese Heart: irregular rhythm Lungs: clear to auscultation Airway: Mallampati scale class II Neurological: alert and oriented Last oral intake: >/= 8 hours ASA classification: III Emergent: no Anesthetic plan: proceed Anesthesia type and monitoring: general GIVS and standard monitoring Results Review: All pre-operative results and documents have been reviewed as part of the pre- operative evaluation. Informed Consent: The patient's anesthetic plan and its attendant risks and benefits were discussed with the patient/family/POA. Questions were solicited and answers provided to the satisfaction of the patient/family/POA.
[2023-01-29 14:15] VITALS: BP 117/78; PULSE 84; RESP 16; O2SAT 94
[2023-01-29] MEDS: PERFLUTREN LIPID MICROSPHERES 1.5 ML VIAL DILUTED TO 10 ML TOTAL VOLUME IV PUSH (14:20)
[2023-01-29 14:30] VITALS: BP 126/79; PULSE 84; RESP 15; O2SAT 97
--- NOTE | 2023-01-29 14:40 | ECG_ITS ---
Measurements Intervals [place] Rate: 78 P: NE: 0 QRS: -10 QRSD: 104 T: 7 QT: 395 QTc: 452 Interpretive Statements ATRIAL FIBRILLATION BORDERLINE T WAVE ABNORMALITY- INFERIOR LEADS BASELINE ARTIFACT- V3 ABNORMAL ECG COMPARED TO ECG 12/26/2022 13:26:19 NO SIGNIFICANT CHANGES Electronically Signed On 01-29-2023 12:55:47 CDT by Pedro Easton D.O.
--- NOTE | 2023-01-29 14:43 | WPDTECDV ---
ANDREW with Cardioversion Date of procedure: 01/29/23 Procedure Type: Transesophageal echocardiogram guided elective electrical cardioversion Diagnosis: Atrial fibrillation Indications: Atrial fibrillation Description of Procedure: Brief history present illness: Patient is a pleasant 72-year-old female with a past medical history significant for breast cancer, hyperlipidemia, coronary myocardial bridge and recent diagnosis atrial fibrillation with RVR who underwent transesophageal echocardiogram 12/26/2022 preparation for cardioversion were reported 0.8 x 1.3 cm oblong mobile mass was noted reportedly in the left atrial appendage. Images were cut short due to hypoxia that time and such further evaluation was not performed. She has been maintained on systemic anticoagulation without interruption for another 4 weeks and now returns for repeat attempted ANDREW guided cardioversion attempt to restore sinus rhythm. Procedure in detail: After verbal and written informed consent was obtained the patient risks, benefits, and alternatives explained in detail the patient agreed to proceed with the plan of care as outlined above. Patient was evaluated at bedside in the [facility] procedure room. On examination, neck was supple with normal range of motion, no restrictions to opening of the oral cavity, jaw angle and posterior hypopharynx was clear. Lungs were clear to auscultation. Patient was placed in appropriate 30 to 45 degree angle in a supine, slight left lateral decubitus position. Patient was monitored throughout the study with telemetry, oxygen saturation, end-tidal CO2 monitoring, blood pressure, heart rate, and respirations. Anterior and posterior defibrillator pads placed in the appropriate positions. The posterior hypopharynx was then locally anesthetized using repeated administration of Hurricaine spray as well as gargled viscous lidocaine. After local anesthetic of the posterior hypopharynx was achieved and the oral bite block placed, moderate sedation was administered. Through the oral bite block, the transesophageal echocardiogram probe was advanced into the posterior hypopharynx and into the esophagus easily and without complication. Multiple, multiplanar echocardiographic images were obtained in multiple standard re-projections. Pulsed wave, continuous-wave, and color-flow Doppler were utilized in conjunction with this study. At the conclusion of the study, the transesophageal echocardiogram probe was removed easily and without complication. Patient tolerated the procedure well without difficulty. Patient was in atrial fibrillation throughout the study. Sedation: Anesthesia administration: Please see Anesthesiology documentation for further details and protocol as they were responsible for anesthesia during this procedure. Findings: FINDINGS: LEFT VENTRICLE: Size and systolic function were within normal limits without wall motion abnormalities with ejection fraction of 60%. RIGHT VENTRICLE: Size and systolic function within normal limits. LEFT ATRIUM: Mild left atrial enlargement. No mobile elements identified RIGHT ATRIUM: Normal size. INTERATRIAL SEPTUM: Interatrial septum is anatomically normal without evidence of shunt with color-flow Doppler nor with injection of agitated saline. MITRAL VALVE: Mitral valve is mildly thickened with mild mitral annular calcification with preserved leaflet excursion and mild regurgitation with least 2 smaller separate regurgitant jets identified. AORTIC VALVE: The aortic valve was an anatomically normal 3 leaflet structure with normal leaflet excursion, mild sclerosis, and no regurgitation identified. TRICUSPID VALVE: The tricuspid valve is anatomically normal with normal leaflet excursion with mild regurgitation identified. No mobile elements identified. PULMONIC VALVE: Pulmonic valve was not well visualized, however, trivial regurgitation was identified. LEFT ATRIAL
[2023-01-29 14:45] VITALS: BP 143/90; PULSE 78; RESP 19; O2SAT 97
[2023-01-29 15:00] VITALS: BP 143/91; PULSE 75; RESP 16; O2SAT 97
[2023-01-29 15:30] VITALS: BP 148/89; PULSE 81; RESP 17; O2SAT 97
== END 2023-01-29 15:45 | disposition home or self-care (01) ==
PROVIDERS: PCP Family Medicine; Visit Provider Internal Medicine Cardiovascular Disease
PROC: (CPT 93312; principal; 2023-01-29 13:30)
PROC: 5A2204Z Restoration of Cardiac Rhythm, Single (ICD-10-PCS; 2023-01-29 13:30)
DX: I48.91 Unspecified atrial fibrillation (principal); I34.0 Nonrheumatic mitral (valve) insufficiency; I34.81 Nonrheumatic mitral (valve) annulus calcification; I35.8 Other nonrheumatic aortic valve disorders; I36.1 Nonrheumatic tricuspid (valve) insufficiency; I10 Essential (primary) hypertension; E78.00 Pure hypercholesterolemia, unspecified; G47.33 Obstructive sleep apnea (adult) (pediatric); Q24.5 Malformation of coronary vessels; E21.3 Hyperparathyroidism, unspecified; Z85.3 Personal history of malignant neoplasm of breast; Z79.01 Long term (current) use of anticoagulants
CPT/HCPCS: 36415; 80048; 83735; 92960; 93005; C8925; J2704; Q9957

== ENCOUNTER 2023-03-26 00:56 | Day surgery (SDC) | payer MEDICARE, SELFPAY ==
[2023-03-23 14:20] VITALS: BMI 35.9
[2023-03-26] VITALS (10 sets, daily range): BP systolic 138–155; BP diastolic 79–123; PULSE 65–83; RESP 14–18; TEMP 36.6; O2SAT 77–100
--- NOTE | 2023-03-26 10:00 | ECG_ITS ---
Measurements Intervals [place] Rate: 81 P: AL: 0 QRS: -6 QRSD: 102 T: 24 QT: 414 QTc: 482 Interpretive Statements ATRIAL FIBRILLATION NONSPECIFIC T-WAVE ABNORMALITY- ANT/INF LEADS BASELINE ARTIFACT- I, II, III, AVF ABNORMAL ECG COMPARED TO ECG 01/29/2023 12:37:58 NO SIGNIFICANT CHANGES Electronically Signed On 03-26-2023 11:14:01 CDT by Pedro Easton D.O.
--- NOTE | 2023-03-26 10:30 | ECG_ITS ---
Measurements Intervals [place] Rate: 73 P: NE: 0 QRS: -6 QRSD: 113 T: 3 QT: 360 QTc: 398 Interpretive Statements ATRIAL FIBRILLATION INCOMPLETE LEFT BUNDLE BRANCH BLOCK LOW QRS VOLTAGE IN PRECORDIAL LEADS NONSPECIFIC T-WAVE ABNORMALITY- INF/LAT LEADS ABNORMAL ECG COMPARED TO ECG 03/26/2023 10:27:52 NO SIGNIFICANT CHANGES Electronically Signed On 03-26-2023 12:10:53 CDT by Pedro Easton D.O.
[2023-03-26 11:13] LABS: Anion Gap 7 mmol/L (8-16); Blood Urea Nitrogen 19 mg/dL (7-17); Calcium 8.4 mg/dL (8.4-10.2); Carbon Dioxide 28 mmol/L (22-30); Chloride 95 mmol/L (98-107); Estimated CRCL calculation 42 ml/min; Estimated Glomerular Filt Rate 54; Glucose 84 mg/dL (65-110); Magnesium 1.6 mg/dL (1.6-2.3); Potassium 3.4 mmol/L (3.4-5.0); Sodium 130 mmol/L (137-145)
--- NOTE | 2023-03-26 11:32 | WPDMODSED ---
Moderate Sedation Note-Pt Data Patient Data Diagnosis: Persistent atrial fibrillation Present Complaint: Exertional dyspnea Procedure to be performed/Plan: DC cardioversion Allergies Allergy/AdvReac Type Severity Reaction Status Date / Time adhesive tape Allergy Unknown Rash Verified 03/26/23 10:33 cephalexin Allergy Unknown throat Verified 03/26/23 10:33 closing diazepam Allergy Unknown mental Verified 03/26/23 10:33 status change Penicillins Allergy Unknown unknown Verified 03/26/23 10:33 Home Medications Medication Instructions Recorded Confirmed Type nitroglycerin 0.3 mg sublingual 0.3 mg sublingual Q5M PRN chest 06/24/19 03/23/23 Rx tablet (Nitrostat) pain #20 tabs calcium carbonate 600 mg calcium 600 mg PO HS 11/04/19 03/23/23 History (1,500 mg) tablet (Calcium) raloxifene 60 mg tablet 60 mg PO DAILY 03/02/21 03/23/23 History levocetirizine 5 mg tablet (Xyzal) 5 mg PO HS 01/10/22 03/26/23 History cholecalciferol (vitamin D3) 50 50 mcg PO HS 06/09/22 03/23/23 History mcg (2,000 unit) capsule cpap #1 ea 12/06/22 12/06/22 Rx miscellaneous medical supply See Rx Instructions miscellaneous 12/06/22 01/26/23 Rx .COMPLEX #1 ea semaglutide (weight loss) 0.5 0.5 mg (0.5 mL) subcut WEEKLY #6 mL 02/08/23 03/23/23 Rx mg/0.5 mL subcutaneous pen injector (Wegovy) apixaban 5 mg tablet (Eliquis) 5 mg PO BID 03/06/23 03/23/23 History metoprolol succinate 50 mg 50 mg PO HS 03/06/23 03/23/23 History tablet,extended release 24 hr amiodarone 400 mg tablet 400 mg PO DAILY 03/23/23 03/23/23 History atorvastatin 20 mg tablet 20 mg PO DAILY 03/23/23 03/23/23 History diclofenac sodium 50 mg 50 mg PO BID 03/23/23 03/23/23 History tablet,delayed release hydrochlorothiazide 12.5 mg tablet 12.5 mg PO DAILY 03/23/23 03/23/23 History oxybutynin chloride 5 mg tablet 5 mg PO BID 03/23/23 03/23/23 History Current Medications: Active Medications Sodium Chloride (Normal Saline Iv) 1,000 mls @ 30 mls/hr IV CONT .Q24H MARIXA Sedation/Anesthesia: No previous sedation/anesthesia problems (including family history). [facility] Past Medical History Medical History Arthralgia of hand Atrial fibrillation Atypical chest pain Chest pain COVID-19 Drug-induced polyneuropathy Hepatitis C antibody test negative (03/11/19) HX: breast cancer Syncope, vasovagal Surgical History Surgical History History of total left knee replacement (~04/2022) Hx of breast biopsy negative Family History Family History Father Family history of glaucoma Family history of Alzheimer's disease Family history of dementia, Onset Age: 80 Mother Family history of glaucoma Hypertension Cerebrovascular accident Sibling Family history of glaucoma Malignant neoplasm of prostate Family history of malignant neoplasm of breast in first degree relative Other Family history of elevated blood lipids Family history of malignant neoplasm of breast Social History Social History Smoking status: Never smoker Second hand tobacco smoke exposure: No Alcohol intake: current Drinks per week: 1 Alcohol use details: drinks 1-2 times a week wine Substance use: never Substance use type: does not use Lack of Transportation: No Lack of Food: Never True Current Housing: I Have Housing Concerned About Future Housing: No Difficulty Paying Gas/Electric Bills: No Difficulty Paying for Meds: No Currently Unemployed: No Education: Master's Degree or Higher Difficulty w/ Childcare or Family Care: No Living arrangements: with family Occupation/Education: retired Gender identity (if verbalized by the patient): Female Sexual Orientation (if Verbalized by the Patient): Straight or H
--- NOTE | 2023-03-26 11:47 | WPDCARDPROC ---
Cardiac Cath Procedure Note Date of procedure:: 03/26/23 Performing physician:: Marco Sandoval MD Indication:: Persistent atrial fibrillation Brief clinical history:: This is a 72-year-old lady with recent diagnosis of atrial fibrillation of uncertain chronicity. An attempt is being made to restore sinus rhythm following treatment with amiodarone as an outpatient. She is systemically anticoagulated with apixaban. Procedure Procedure performed:: DC cardioversion Sedation/Medication given:: IV propofol in aliquots total dosage of 70 mg Estimated blood loss:: None Procedure note:: Patient was brought to the cardiac catheterization lab holding area in the supine position in the postabsorptive state. Defibrillator patches were placed in the AP position. IV access was established in the right hand. She was at sedated with IV push propofol in aliquots a total dosage of 80 mg provided excellent sedation. She was DC cardioverted at 360 joules with persistence of atrial fibrillation. Findings:: As above Conclusion:: Unsuccessful but uncomplicated DC cardioversion with 360 joule failing to restore sinus rhythm. This high energy was used as 200 joules failed to convert the patient in January. Marco Sandoval MD [facility]
== END 2023-03-26 13:15 | disposition home or self-care (01) ==
PROVIDERS: PCP Family Medicine; Visit Provider Specialist
PROC: 5A2204Z Restoration of Cardiac Rhythm, Single (ICD-10-PCS; principal; 2023-03-26 11:30)
DX: I48.19 Other persistent atrial fibrillation (principal); I44.7 Left bundle-branch block, unspecified; Z79.01 Long term (current) use of anticoagulants; Z79.810 Long term (current) use of selective estrogen receptor modulators (SERMs); Z79.85 Long-term (current) use of injectable non-insulin antidiabetic drugs
CPT/HCPCS: 36415; 80048; 83735; 92960; J2704; J7030

== ENCOUNTER 2024-04-03 07:53 | Outpatient (CLI) | payer MEDICARE, SELFPAY ==
--- NOTE | ~2024-04-03 | US_ITS ---
EXAMINATION: US retroperitoneal comp DATE: 04/03/2024 08:19 INDICATION: Hematuria TECHNIQUE: Multiple ultrasound grayscale images of the kidneys were obtained. COMPARISON: CT dated 01/30/2014 FINDINGS: The right kidney measures 9.4 x 3.7 x 5.4 cm. The left kidney measures 10.8 x 4.9 x 5.4 cm. The kidne ys demonstrate normal echogenicity. There are bilateral anechoic renal cysts measuring 3.2 cm at the inferior right kidney and 4.9 cm at the upper pole of the left kidney. There is no hydronephrosis in either kidney. No stones identified. Unchanged small bladder diverticulum in the right trigonal eder on of the otherwise normal bladder. IMPRESSION: 1. Bilateral renal cysts. No hydronephrosis. Reviewed, dictated and finalized at location A.
== END 2024-04-03 07:54 | disposition home or self-care (01) ==
LOC: MICIMG 07:54
PROVIDERS: PCP Family Medicine; Visit Provider Student in an Organized Health Care Education/Training Program
DX: N28.1 Cyst of kidney, acquired (principal); R31.9 Hematuria, unspecified
CPT/HCPCS: 76770

== ENCOUNTER 2025-04-13 18:27 | Emergency (ER) | payer MEDICARE, SELFPAY ==
--- NOTE | ~2025-04-13 | CT_ITS ---
EXAMINATION: 1. CT facial & cervical spine wo DATE: 04/13/2025 19:08 INDICATION: Facial injury TECHNIQUE: 1. Computed tomography (CT) of the maxillofacial region and of the cervical spine were performed without intravenous contrast. Sagittal and coronal reconstructions of both regions were obtained. Automated exposure control and iterative reconstruction technique were employed. The dose-length product was 159.3 mGy-cm. COMPARISON: 02/15/2022 FINDINGS: Maxillofacial CT: Left periorbital soft tissue swelling. There is a fracture along the inferior wall of the left orbit. To the medial margin of a 14 x 6 mm fragment which extends anteroposteriorly along the lateral margin of the inferior wall is displaced up to 6 mm cephalad into the orbit. There is a small hematoma along the floor of the orbit along with a few foci of intraorbital gas. No evident inferior herniation of the inferior rectus muscle. The bilateral globes appear intact with changes of bilateral intraocular lens replacement. No other maxillofacial fractures identified. Specifically the nasal bones, zygomatic arches, mandible and valle of the right orbit remaining intact. Unchanged mild rightward bowing of the nasal septum. The right maxillary sinus is smaller than the left and remains filled with high attenuation material which suggests sequela of chronic sinusitis. There is also high attenuation material within the left maxillary sinus but which is new since the prior study potentially also related to chronic sinusitis or blood related to the fracture. Mastoid air cells and middle ear cavities are clear. Cervical spine CT: Straightening of the normal cervical lordosis. There is anterior fusion at C4- C5, C5-C6 and T2-T3. There is posterior spinal fusion bilaterally at C4-C5. Vertebral body heights are normal. No acute fracture. Severe disc height loss with degenerative endplate changes at C6-C7 and C7-T1. Mild disc height loss at C2-C3 and C3-C4. Hypertrophic changes at the posterior aspect of the fused C4-C5 and C5-C6 disc spaces as well as posterior disc osteophyte complexes at C6-C7 and C7-T1 intervertebral mild central canal stenosis at each of these levels, greatest at C5-C6. Severe bilateral facet osteoarthritis at C2-C3, C3-C4, T3-T4, T4-T5 and on the left at C7-T1 and T2-T3. Moderate facet osteoarthritis the r emaining unfused cervical facet joints. This contributes to moderate neural foraminal stenosis bilaterally at C5-C6 and T2-T3 and on the right at C6-C7 and C7-T1. Visualized cervical soft tissues are unremarkable. Visualized apices of lungs are clear. Mild neural foraminal stenosis at the millimeters remaining cervical and upper thoracic neural foramina. IMPRESSION: 1. Fracture of the inferior wall of the left orbit with up to 6 mm cephalad displacement of a small fragment along the lateral inferior wall with small hematoma and soft tissue gas in the inferior orbit. 2. Severe cervical spondylosis with anterior fusion at C4-C5 and C5-C6 but without acute osseous abnormality. 3. Chronic high attenuation material within the asymmetrically small right maxillary sinus suggesting sequela of chronic sinusitis. Additional high attenuation material in the left maxillary sinus new since the prior study which could represent either additional sequela of chronic sinusitis or blood related to the inferior left orbital wall fracture. Reviewed, dictated and finalized at location A. IMPRESSION: 1. Fracture of the inferior wall of the left orbit with up to 6 mm cephalad dis placement of a small fragment along the lateral inferior wall with small hemato ma and soft tissue gas in the inferior orbit. 2. Severe cervical spondylosis with anterior fusion at C4-C5 and C5-C6 but with out acute osseous abnormality. 3. Chronic high attenuation material within the asymmetrically small right maxi llary sinus suggesting sequela of chronic sinusitis. Additional high attenuatio n material in the left maxillary sinus new since the prior study which could re present either additional sequela of chronic sinusitis or blood related to the inferior left orbital wall fracture.
--- NOTE | ~2025-04-13 | CT_ITS ---
CT HEAD NON-CONTRAST Clinical History: head injury Comparison: 02/15/2022 Technique: Unenhanced axial images skull base to vertex Coronal, sagittal reformats CT images acquired with automatic exposure control for dose reduction DLP: 605 mGy-cm Findings: Chronic white matter microvascular ischemic changes. Sulci, ventricles: Unremarkable. No intracerebral hemorrhage. No evidence acute territorial infarct. No mass effect, midline shift. Bony calvarium intact. Visualized paranasal sinuses: Maxillary sinuses are opacified. Mastoid air cells: Clear. Left orbital floor fracture. Small intra and extraconal gas. Proptosis. Periorbital contusion. IMPRESSION: 1. No acute intracranial findings. 2. Left facial and periorbital fractures. Refer to CT face. Reviewed, dictated and finalized at location R.
--- NOTE | ~2025-04-13 | XR_ITS ---
Examination: XR wrist LT min 3V Clinical History: wrist pain s/p fall Comparison: X-rays hands 02/12/2020 Technique: 4 views left wrist Findings/impression: 1. No fracture or dislocation left wrist. 2. Calcification of TFCC. 3. Radiocarpal joint space narrowing. 4. Mild carpal row degenerative changes. 5. Severe degenerative changes basal joint of thumb. 6. MCP degenerative changes. Reviewed, dictated and finalized at location R.
--- OUTSIDE RECORDS SUMMARY | 2025-04-13 18:30 | XMS_ITS | Clinical Summary ---
Author Organization [facility] [employer] Address [address] [place] [address] Care Team Providers Care Tube Maker Name Role Phone Deejay Mari MD Unavailable [phone] Lenny Lebron MD Unavailable [phone] Jillian Swenson MD Primary Care Provider [phone] Lenny Lebron MD Unavailable [phone] Source Comments [facility],non-owned Affiliates and Associated Physician Practices is amultiple site organization consisting of ambulatory clinics and hospital sitesin [place], [place], [place] and [place]. This disclosure is being madepursuant to the Care Everywhere program and may not contain all information available regarding this patient. Last updated 18.[facility] Allergies Active Allergy Reactions Criticality Noted Date Comments Adhesive Sensitivity Rash Medium 01/23/2019 Bandaids cause rash/ paper tape OK Diazepam Other High 09/06/2017 Very lethargic Aumdslzo-Lvrfiwhmkz-Xryarzs in Rash Medium 03/27/2022 Penicillin G Potassium Rash 10/28/2009 Medications * Be aware that medications may not be up to date on this document. Alwaysverify current medications with the patient. oxybutynin (DITROPAN) 5 MG tablet Take 1 (one) tablet by mouth 2 times daily 04/23/20 21 Active metoprolol succinate XL 24hr (TOPROL XL) 25 MG tablet Take 2 (two) tablets by mouth at bedtime 10/31/19 21 Active atorvastatin (LIPITOR) 20 MG tablet Take 1 (one) tablet by mouth once daily 04/23/20 21 Active CALCIUM-VITAMI N D PO Take 600 mg by mouth once daily Active Multiple Vitamins-[place] als (MULTIVITAMIN GUMMIES WOMENS PO) Take by mouth once daily Active Cholecalcifero l (Vitamin D-3) 125 MCG (5000 UT) Take by mouth once daily Active diclofenac sodium EC (Voltaren) 50 MG tablet 05/30/20 22 Active raloxifene (Evista) 60 MG tablet 06/14/20 22 Active Eliquis 5 MG tablet 01/13/20 23 Active clindamycin (Cleocin) 300 MG capsule Take 2 capsules one hour prior to each dental appointment. 2 capsule 4 02/14/20 24 Active Zepbound 5 MG/0.5ML injection Inject 5 (five) mg subcutaneously every 7 days (once a week) 12/19/19 25 Active nitroGLYCERIN (Nitrostat) 0.3 MG tablet Dissolve 1 (one) tablet under the tongue 12/19/19 25 Active ZINC-VITAMIN C PO Take 3 Each by mouth once daily Discontin ued(List Clean-Up) Wegovy 0.25 MG/0.5ML pen INJECT 0.25 MG (0.5 ML) SUBCUTANEOUSLY WEEKLY 02/08/20 23 025 Discontin ued(List Clean-Up) hydroCHLOROthi azide (Hydrodiuril) 25 MG tablet Take 1 (one) tablet by mouth every morning 06/07/20 23 025 Discontin ued(List Clean-Up) Saxenda 18 MG/3ML INJECT 0.6MG SUBCUTANEOUSLY ONCE DAILY 01/21/20 24 025 Discontin ued(List Clean-Up) methylPREDNISo lone (Medrol Dosepak) 4 MG tablet TAKE BY MOUTH DIRECTED ON INSIDE OF PACKAGE 04/15/20 24 025 Discontin ued(List Clean-Up) famotidine (Pepcid) 20 MG tablet Take 1 (one) tablet by mouth 2 times daily 08/13/19 25 025 Discontin ued(List Clean-Up) meloxicam (Mobic) 15 MG tablet Take 1 (one) tablet by mouth once daily 08/13/19 25 025 Discontin ued(List Clean-Up) Active Problems Problem Noted Date Diagnosed Date Estrogen receptor negative status (ER-) 06/17/20 24 Genetic susceptibility to malignant neoplasm of breast 06/17/2024 Hematuria, unspecified 06/17/2024 Malformation of coronary vessels 02/25/2024 Non-pressure chronic ulcer o f skin of other sites with unspecified severity 02/25/2024 Unspecified atherosclerosis of [place] arteries of extremities, unspecified extremity 02/25/2024 Morbid (severe) obesity due to excess calories 1 07/16/2022 05/24/2023 MARCO ANTONIO (obstructive sleep apnea) 05/16/2023 Osteoarthritis of right glenohumeral joint 04/09 Chronic anticoagulation 12/13/2022 05/24/20 23 Chronic fatigue 12/13/2022 05/24/2023 Shortness of breath 12/13/2022 05/24/2023 Vasovagal near syncope 03/06/2022 3 BARD1 gene mutation positive 01/05/2021 Overview (06/07/2021): 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) Benign hypertension 11/19/2019 Dyslipidemia 11/19/2019 Primary osteoarthritis of left knee 04/13/2015 Fusion of spine 2009 05/24/2023 Pure hypercholesterolemia Resolved Problems Problem Noted Date Diagnosed Date Resolved Date Afib 12/13/2022 05/24/2023 06/17/2024 Hyperparathyroidism 11/22/2013 02/14/20 22 Overview (06/07/2021): HYPERPARATHYROIDISM NOS Vitamin D deficiency 11/22/2013 022 Overview (06/07/2021): VITAMIN D DEFICIENCY NOS Encounters Date Type Department Care Team Description 03/23/2025 3:30 PM CDT Office Visit [facility] [address], [address] [place] [phone] Deejay Mari MD Presence of left artificial knee joint (Primary Dx) 03/23/2025 2:35 PM CDT Ancillary Procedure [facility] - Radiology [address] [place] [address] Deejay Mari MD Presence of left artificial knee joint 02/24/2025 Telephone [facility] [address], [address] [place] [phone] Deejay Mari MD Reschedule Appointment from Last 3 Months Family History Medical History Relation Name Comments Arrhthymia Brother Dementia Brother Alzheimer's Disease Father Other - Gastrointestinal Father Arthritis - Osteo Mother Dementia Mother Hypertension Mother Arthritis - Osteo Sister Cancer - Breast Sister Other Sister Relation Name Status Comments Brother Father Mother Sister Other Fibromyalgia Social History Tobacco Use Types Packs/Day Years Used Date Smoking Tobacco: Never Smokeless Tobacco: Never Tobacco Cessation:Counseling Given: Not Answered Alcohol Use Standard Drinks/Week Comments Yes 0 (1 standard drink = 0.6 oz pur e alcohol) socially PHQ-2 Answer Date Recorded Patient Health Questionnaire-2 Score 1 03/16/2025 Hunger Vital Sign Answer Date Recorded Within the past 12 months, y ou worried that your food would run out before you got the money to buy more. Never true 04/14/20 22 Within the past 12 months, t he food you bought just didn't last and you didn't have money to get more. Never true 04/14/2022 Comments Unknown Sex and Gender Information Value Date Recorded Sex Assigned at Female 07/14/2021 5:28 PM NAVAL ENGINEER Legal Sex Female 4:23 AM NAVAL ENGINEER Gender Identity Female 07/14/2021 5:28 PM NAVAL ENGINEER Sexual Orientation Straight 07/14/2021 5: 28 PM NAVAL ENGINEER Last Filed Vital Signs Vital Sign Reading Time Taken Comments Blood Pressure 147/92 04/10/2023 7:39 AM CDT Pulse 89 04/10/2023 7:39 AM CDT Temperature 36.6 C (97.8 F) 04/10/2023 7:39 AM CDT Respiratory Rate 18 04/10/2023 7:39 AM CDT Oxygen Saturation 93% 04/10/2023 7:39 AM CDT Inhaled Oxygen Concentration - - Weight 68 kg (150 lb) 03/23/2025 3:02 PM CDT Height 149.9 cm (4' 11) 03/23/2025 3:02 PM CDT Body Mass Index 30.3 03/23/2025 3:02 PM CDT Plan of Treatment Upcoming Encounters Date Type Department Care Team (Late st Contact Info) Description 04/21/2025 10:40 AM CDT Office Visit [facility] - Orthopedic Surgery [address] [place] [phone] Enrico Guaman MD [address] [place] [address] Health Maintenance Due Date Last Done Comments BONE DENSITY TESTING 1950 HEPATITIS C SCREENING 12/17/1966 DTAP/TDAP/TD VACCINES (1 - Tdap) 12/22/1967 PNEUMOCOCCAL VACCINE 50+ (1 of 1 - PCV) 1998 ZOSTER VACCINE (1 of 2) 1998 Respiratory Syncytial Virus (RSV) Vaccine Pt: or over 60 yrs (1 - 1-dose 75+ series) 12/22/2023 MEDICARE AWV CALENDAR YEAR 2024 COVID-19 VACCINE ( - season) 2025 04/03/2022, 10/29/2021, 06/23/2021, Additional history exists INFLUENZA VACCINE (#1) 2025 , 04/08/2020, 04/25/2019, Additional history exists DEPRESSION SCREENING Completed 08/18/2024, 10/11/2023, 05/24/2023 HEPATITIS B VACCINE Aged Out No longe r eligible based on patient's age to complete this topic HIB VACCINE Aged Out No longer eligi ble based on patient's age to complete this topic HPV VACCINE Aged Out No longer eligi ble based on patient's age to complete this topic MENINGOCOCCAL (Group B) VACCINE SHARED DECISION-MAKING Aged Out No longer eligible based on patient's age to complete this topic MENINGOCOCCAL GROUPS A/C/Y/W VACCINE Aged Out No longer eligible based on patient's age to complete this topic Medical Devices Implanted Type Area Rebeamer Device Identifier Shelf Expiration Date Model / Serial / Lot Holden Bone Drayton-G Hv 40/20 Implanted:Qty: 1 on 04/14/2022 by Deejay Mari MD at [facility] Left: Knee [employer] 08/04/2023 600-15-100 / / [id number] Tray Tib 71mm Kn Cocr I Beam Implanted:Qty: 1 on 04/14/2022 by Deejay Mari MD at [facility] Left: Knee [employer] 12/09/2031 [id number] / / [id number] Cmpnt Fem Kn Lt Cr Cmnt Prm Vngrd Intlk Implanted:Qty: 1 on 04/14/2022 by Deejay Mari MD at [facility] Left: Knee [employer] 02/01/2032 [id number] / / [id number] Brng [id number] Vngrd Arcm Kn Ant Stab Implanted:Qty: 1 on 04/14/2022 by Deejay Mari MD at [facility] Left: Knee [employer] 02/07/2027 [id number] / / [id number] [place] Tape Cerclage Implanted:Qty: 1 on 04/14/2022 by Deejay Mari MD at [facility] Left: Knee 08/08/2026 [id number] / / [id number] Screw 5mm 26mm Shldr Lck Rsp Glnd Bsplt Implanted:Qty: 1 on 04/09/2023 by Enrico Guaman MD at [facility] Right: Shoulder [employer] 01/24/2029 506-03-126 / / [id number] Head Glnd 32mm Rsp -4mm Ofst Shldr Rtn Implanted:Qty: 1 on 04/09/2023 by Enrico Guaman MD at [facility] Right: Shoulder [employer] 01/19/2029 508-32-103 / / [id number] Stem Hum 48mm 6mm Sm Shl Implanted:Qty: 1 on 04/09/2023 by Enrico Guaman MD at [facility] Right: Shoulder [employer] 11/28/2028 533-06-048 / / [id number] Spcr Sm 8mm Altivate Rvrs Implanted:Qty: 1 on 04/09/2023 by Enrico Guaman MD at [facility] Right: Shoulder [employer] 01/01/2029 533-08-000 / / [id number] Ins Sckt Djo Srg Altivate Rvrs 32mm Sm Implanted:Qty: 1 on 04/09/2023 by Enrico Guaman MD at [facility] Right: Shoulder [employer] 01/24/2028 509-03-032 / / [id number] Bsplt Glnd 30mm Rsp Shldr P2 Strl Lf Implanted:Qty: 1 on 04/09/2023 by Enrico Guaman MD at [facility] Right: Shoulder [employer] 01/03/2029 [id number] / / [id number] Screw 5mm 14mm Shldr Lck Rsp Glnd Bsplt Implanted:Qty: 1 on 04/09/2023 by Enrico Guaman MD at [facility] Right: Shoulder [employer] 02/09/2029 506-03-114 / / [id number] Screw 5mm 14mm Shldr Lck Rsp Glnd Bsplt Implanted:Qty: 1 on 04/09/2023 by Enrico Guaman MD at [facility] Right: Shoulder [employer] 01/24/2029 506-03-114 / / [id number] Screw 5mm 26mm Shldr Lck Rsp Glnd Bsplt Implanted:Qty: 1 on 04/09/2023 by Enrico Guaman MD at [facility] Right: Shoulder [employer] 01/02/2029 506-03-126 / / [id number] Procedures Procedure Name Priority Date/Time Associated Diagnosis Comments XR KNEE LEFT 3VW Routine 03/23/2025 2:40 PM CDT Presence of left artificial knee joint from Last 3 Months Results * XR Knee Left 3Vw (03/23/2025 2:40 PM CDT) Narrative [facility] [address] - 03/23/2025 2:40 PM CDT Please see progress note in Epic for results. us Deejay Mari MD DIAGNOSTIC IMAGING ORDERABLES Final Result [facility] [place] [address] from Last 3 Months Insurance Advance Directives Documents on File Type Date Recorded Patient Rivet Tapping Machine Operator Expl anation Adv Directive/Living Will/POA 12/05/2009 11:02 AM * Full Code (Latest Code Status on File) Date Activated Date Inactivated Comments 04/09/2023 11:50 AM 04/10/2023 2:18 PM * Full Code Date Activated Date Inactivated Comments 04/14/2022 11:38 AM 04/16/2022 3:24 PM * Full Code Date Activated Date Inactivated Comments 12/01/2009 10:45 AM 12/05/2009 1:13 AM Care Teams Tube Maker Relationship Specialty Start Date End Date Jillian Swenson MD [address] [place] [phone] PCP - General 06/23/22 [place] [address] [address] [facility] [address] [place] [address] Orthopedic Surgery 04/23/14 Lenny Lebron MD [address] [place] [address] [place] [address] Cardiovascular Disease 02/20/22 Lenny Lebron MD [address] [place] [address] [place] [address] Cardiovascular Disease 03/07/23
--- OUTSIDE RECORDS SUMMARY | 2025-04-13 18:30 | XMS_ITS | Clinical Summary ---
Author Organization [facility] Address Pending sale to [facility] [place] [address] Care Team Providers Care Winding Lathe Operator Name Role Phone Jillian Swenson MD Primary Care Provider [phone] Social History Tobacco Use Types Packs/Day Years Used Date Smoking Tobacco: Never Assessed Comments Unknown Sex and Gender Information Value Date Recorded Sex Assigned at Not on file Legal Sex Female 7:45 AM CDT Gender Identity Not on file Sexual Orientation Not on file Plan of Treatment Health Maintenance Due Date Last Done Comments Hepatitis C 1968 Annual Medicare Wellness Visit 2013 Dexa Scan (General) 2013 Pneumococcal Vaccine: 50+ Years (2 of 2 - PCV) 05/18/2022 05/18/2021 COVID-19 Vaccine ( - 2024- season) 2025 04/30/2023, 04/03/2022, 10/29/2021, Additional history exists Influenza Adult (#1) 2025 04/24/2024, 05/25/2023, 04/08/2020, Additional history exists DTaP, Tdap and Td Vaccines (2 - Td or Tdap) 02/28/2029 02/28/2019 Zoster Vaccines Completed 06/25/2019, 02/28/2019 RSV Immunization or 60+ Years Completed 06/12/2023 Meningococcal B Vaccine Aged Out No l onger eligible based on patient's age to complete this topic Meningococcal Vaccine Aged Out No keagan daniele eligible based on patient's age to complete this topic RSV Immunizations Under 20 Months Aged Out No longer eligible based on patient's age to complete this topic Insurance AET[employer] MEDICARE Care Teams Winding Lathe Operator Relationship Specialty Start Date End Date Jillian Swenson MD [facility] [address] [place] [address] PCP - General FAMILY PRACTICE 04/24/24
--- OUTSIDE RECORDS SUMMARY | 2025-04-13 18:30 | XMS_ITS | Clinical Summary ---
Author Organization [facility] Address [address] [place] [address] Care Team Providers Care Construction Estimator Name Role Phone Jillian Swenson MD Primary Care Provider + Cheryl Mccormick MD Unavailable Allergies Active Allergy Reactions Criticality Noted Date Comments Adhesive Rash Medium 01/23/2019 Bandaids cause rash/ paper tape OK Adhesive Tape-Silicones Rash Medium 12/18/2024 Cephalexin Anaphylaxis High 12/18/2024 Diazepam Anxiety,Mental statu s changes High 09/06/2017 Penicillin G Potassium Rash Medium 10/28/2009 Penicillins Rash,Unknown High 01/25/2010 Medications atorvastatin (LIPITOR) 20 mg tabletIndication s:high cholesterol Take 1 tablet (20 mg total) by mouth every morning 06/04/20 17 Active calcium citrate/vitamin D3 (CALCIUM CITRATE + D ORAL) Take 1 tablet by mouth nightly Active oxybutynin (DITROPAN) 5 mg tabletIndication s:Urinary Urgency Take 1 tablet (5 mg total) by mouth 2 (two) times a day Active multivit-mineral s/folic acid (ADULT MULTIVITAMIN GUMMIES ORAL)Indications :prevent vitamin deficiency Take 2 tablets by mouth every morning Active diclofenac DR (VOLTAREN) 50 mg EC tabletIndication s:Osteoarthritis Take 1 tablet (50 mg total) by mouth 2 (two) times a day Active UNABLE TO FIND Vitafusion Power C - 2 gummies, orally, daily Active nitroglycerin (NITROSTAT) 0.[address] 1 tablet (0.4 mg total) under the tongue every 5 (five) minutes as needed for chest pain Max 3 doses. 30 tablet 3 12/13/19 22 Active metoprolol XL (TOPROL-XL) 50 mg extended release tabletIndication s:Persistent atrial fibrillation (HCC) Take 1 tablet (50 mg total) by mouth daily 90 tablet 3 10/04/19 24 Active Eliquis 5 mg tabletIndication s:Atrial fibrillation, unspecified type (HCC) TAKE 1 TABLET TWICE A DAY 180 tablet 1 10/30/19 25 Active raloxifene (EVISTA) 60 mg tablet TAKE 1 TABLET DAILY 90 tablet 3 10/30/19 25 Active atorvastatin (LIPITOR) 20 mg tablet 1 tablet (20 mg total) by other route 10/30/19 25 Active famotidine (PEPCID) 20 mg tablet Take 1 tablet (20 mg total) by mouth 2 (two) times a day 08/13/19 25 Active calcium carbonate (OS-SHAWN) 1,500 mg (600 mg elemental) tablet Take 600 mg by mouth 11/04/19 20 Active nitroglycerin (Nitrostat) 0.[address] 1 tablet (0.3 mg total) under the tongue 12/19/19 25 Active metoprolol XL (TOPROL-XL) 50 mg extended release tablet Take 1 tablet (50 mg total) by mouth 11/26/19 25 Active raloxifene (EVISTA) 60 mg tablet Take 1 tablet (60 mg total) by mouth 03/02/20 21 Active tirzepatide, weight loss, (Zepbound) 7.5 mg/0.5 mL pen injector Inject 0.5 mL (7.5 mg total) under the skin once a week 2 mL 03/31/20 25 Active tirzepatide, weight loss, (Zepbound) 5 mg/0.5 mL pen injectorIndicati ons:Weight Loss Management for Obese Patient (BMI >= 30),obstructive sleep apnea syndrome Inject 0.5 mL (5 mg total) under the skin every 7 days 2 mL 08/25 025 Discontinued Active Problems Problem Noted Date Diagnosed Date History of chronic gastritis 02/26/2025 Swallowing problem 02/26/2025 Overview (02/26/2025): food goes down wrong pipe frequently pt states GERD with esophagitis 02/26/2025 Diverticulosis of intestine, part unspecified, without perforation or abscess with bleeding 02/26/2025 History of COVID-19 02/26/2025 Overview (02/26/2025): 1.2020 Itching 02/26/2025 Sciatica 02/26/2025 Spinal stenosis, lumbosacral region 02/26/2025 TMJ arthralgia 02/26/2025 Urge incontinence 02/26/2025 Venous insufficiency (chronic) (peripheral) 02/07 Essential hypertension 02/26/2025 High blood pressure 02/26/2025 Peripheral vascular disease, unspecified 025 Overview (02/26/2025): Dr. [id number] incompetent surgical services asst in L calf with minimal venous valvular reflux in L greater saphenous vein. 10.26.15 Normal bilat ABIS, borderline decreased Bilateral TBI's consistent with arterial occlusive disease. Atypical chest pain 02/26/2025 Back pain 02/26/2025 Pain in left hip 02/26/2025 High cholesterol 02/26/2025 Obesity 02/26/2025 Obstructive sleep apnea 02/26/2025 Overview (02/26/2025): cpap Hematuria, unspecified 06/17/2024 Genetic susceptibility to malignant neoplasm of breast 06/17/2024 Malformation of coronary vessels 02/25/2024 Non-pressure chronic ulcer o f skin of other sites with unspecified severity 02/25/2024 Pure hypercholesterolemia 02/25/2024 Unspecified atherosclerosis of viejas arteries of extremities, unspecified extremity 02/25/2024 Atrial fibrillation with RVR 07/30/2023 Fatigue 07/30/2023 MARCO ANTONIO (obstructive sleep apnea) 05/16/2023 Morbid (severe) obesity due to excess calories 1 07/16/2022 Osteoarthritis of right glenohumeral joint 04/09 Persistent atrial fibrillation 12/13/2022 Assessment & Plan (07/26/2023 5:04 PM EVENT HOST): The patient has symptomatic persistent atrial fibrillation refractory to amiodarone therapy. The patient would like to consider catheter ablation. We discussed the rationale for atrial fibrillation ablation, including the steps involved in ablation. I detailed the risks of the procedure, including vascular injury/hematoma, myocardial injury/perforation, stroke, myocardial infarction, pulmonary vein stenosis, thermal esophageal injury, phrenic nerve injury and . I estimated a 60-70% chance of freedom from long-term atrial arrhythmia, and the patient understands that occasionally a second procedure is necessary. Because of the patient's persistent atrial fibrillation, I recommended that they undergo transesophageal echocardiography (to exclude the presence of left atrial thrombus) immediately prior to EP study and ablation. The patient has a FIB3VH3-RESv score of 3. I have therefore recommended continued anticoagulation for thromboprophylaxis. My office will make the appropriate arrangements. From: July, Ene LS, Asad JS, Mario H, Matthew ROBB, Hugo JE, Reji ANGELIQUE, Emmanuel PT, Satya RENEE, ME, Georgi KT, Nikhil RL, Yassine WG, Candis PJ, Deborah CM, Ekaterina CW. 2014 AHA/ACC/HRS guideline for the management of patients with atrial fibrillation: a report of the [place] College [employer]/[place] Heart Association Task Force on Practice Guidelines and the Heart Rhythm Society. J Am Patricia Cardiol 2014. 6.3. AF Catheter Ablation to Maintain Sinus Rhythm: Recommendations Class IIa AF catheter ablation is reasonable for selected patients with symptomatic persistent AF refractory or intolerant to at least 1 class I or III antiarrhythmic medication (388, 392-394). 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 Abnormal stress test 11/19/2019 Abnormal cardiovascular stress test 11/19/2019 Overview (11/19/2019): Added automatically from request for surgery [id number] Chest pain 11/19/2019 Overview (11/19/2019): Added automatically from request for surgery [id number] Benign hypertension 11/19/2019 Palpitation 11/19/2019 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 Overview (12/16/2018): Added automatically from request for surgery [id number] Malignant neoplasm of left b reast in female, estrogen receptor negative 02/25/2018 Cervical sympathetic dystrophy 04/16/2017 Skin ulcer of left lower leg, limited to breakdo wn of skin 04/12/2017 Atherosclerosis of viejas ar zain of left lower extremity with ulceration of ankle 02/19/2017 Neoplasm of skin of eyelid 01/07/2016 Osteoarthritis of knee, unilateral 04/13/2015 Hyperparathyroidism 11/22/2013 Overview (10/12/2016): HYPERPARATHYROIDISM NOS Vitamin D deficiency 11/22/2013 Overview (10/12/2016): VITAMIN D DEFICIENCY NOS Obesity with body mass index 30 or greater 06/24 Morbid obesity 02/08/2012 Fusion of spine 2009 Resolved Problems Problem Noted Date Diagnosed Date Resolved Date Family history of prostate cancer 06/25/2020 12/23/2020 Dyslipidemia 11/19/2019 12/12/2021 Encounters Date Type Department Care Team Description 02/26/2025 1:30 PM CDT Office Visit [facility] Ob[facility]s and Gynecology [address] Advanced Medicine 13th [place] [address] [place] [address] Liliane Moralez NP BARD1 gene mutation positive (Primary Dx); History of left breast cancer; Healthcare maintenance 02/13/2025 10:45 AM CDT Office Visit [facility] Sleep Medicine at [address] [place] [address] Birgit Montejo MD MARCO ANTONIO (obstructive sleep apnea) (Primary Dx); Hypersomnia; Morbid (severe) obesity due to excess calories (HCC); Insomnia, unspecified type 01/26/2025 2:00 PM CDT Office Visit [facility] Medical [facility] Cardiology [address] [place] [address] Marco Sandoval MD Atrial fibrillation with RVR (HCC) (Primary Dx); Persistent atrial fibrillation (HCC) from Last 3 Months Immunizations Immunization Administration Dates Next Due Hep A, Adult 12/15/2005,1950 Influenza, Quad, Adjuvantated, Intramuscular Influenza, Quadrivalent, Rec ombinant, Egg Free, Preservative Free, Intramuscular 04/08/2020,04/25/2019 Influenza, Quadrivalent, Spl it, Preservative Free, Intramuscular 04/22/2018 Influenza, Unspecified 03/09/2014 Pneumococcal Polysaccharide PPV23 05/18/2021 Tdap 02/28/2019 ZOSTER Recombinant 06/25/2019,02/28/2019 Surgical History Surgery Date Site/Laterality Comments TOTAL KNEE ARTHROPLASTY Right Knee Replacement - (Added by TW Conv) SPINAL FUSION BREAST LUMPECTOMY with axillary lymph node dissection COLONOSCOPY BREAST BIOPSY IR INJECTION SHOULDER RIGHT BLEPHAROPTOSIS REPAIR EYE SURGERY CATARACT EXTRACTION, BILATERAL JOINT REPLACEMENT Right knee BREAST BIOPSY 10/15/2020 Left BREAST LUMPECTOMY Left CATARACT EXTRACTION 2017 SHOULDER SURGERY Medical History Medical History Date Comments Anesthesia When had back quarles rgery 2013 / blood pressure dropped really low and had trouble bringing back up/ hospitalized 11 days Vasovagal syncope Fainted a coup le different times/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/ both times(before 2013) called vaso vagal syncope Sleep apnea Hyperparathyroidism Chest pain Abnormal cardiovascular stress test Breast cancer (HCC) left breast Arthritis Hypercholesteremia Hypertension MARCO ANTONIO (obstructive sleep apnea) Arthritis Cataract A-fib (HCC) Per patient Family History Medical History Relation Name Comments Arthritis Brother Pablo Prostate cancer Brother Pablo Prostate can cer - (Added by TW Conv) Stroke Brother Pablo Alzheimer's disease Father Sylvester Cataracts Father Sylvester Glaucoma Father Sylvester Arthritis Mother [place] Cataracts Mother [place] Glaucoma Mother Padmini Hypertension Mother [place] Stroke Mother [place] Arthritis Sister Gris Cancer Sister Gris Cataracts Sister Gris Glaucoma Sister Gris Relation Name Status Comments Brother Pablo Father Sylvester Mother Padmini Sister Gris Social History Tobacco Use Types Packs/Day Years Used Date Smoking Tobacco: Never Smokeless Tobacco: Never Tobacco Cessation:Counseling Given: Not Answered Alcohol Use Standard Drinks/Week Comments Yes 3 (1 standard drink = 0.6 oz pur e alcohol) AUDIT-C Answer Date Recorded Q1: How often do you have a drink containing alc ohol? 2-4 times a month 11/20/2023 Q2: How many drinks containi ng alcohol do you have on a typical day when you are drinking? 1 or 2 11/20/2023 Q3: How often do you have si x or more drinks on one occasion? Less than monthly 11/20/2023 Personal Safety Answer Date Recorded Have you ever been in or are you currently in a harmful physical or emotional relationship or is someone making you feel afraid or unsafe? Denies 11/20/2023 Comments No Sex and Gender Information Value Date Recorded Sex Assigned at Not on file Legal Sex Female 1:06 AM EVENT HOST Gender Identity Female 06/08/2020 9:13 AM EVENT HOST Sexual Orientation Straight 06/08/2020 9: 13 AM EVENT HOST Obstetrics History Last Filed Vital Signs Vital Sign Reading Time Taken Comments Blood Pressure 172/82 02/26/2025 2:12 PM CDT Pulse 56 02/26/2025 2:12 PM CDT Temperature 36.8 C (98.3 F) 02/26/2025 2:12 PM CDT Respiratory Rate 16 02/26/2025 2:12 PM CDT Oxygen Saturation 98% 02/26/2025 2:12 PM CDT Inhaled Oxygen Concentration - - Weight 69.1 kg (152 lb 6.4 oz) 02/26/2025 2:12 P M CDT Height 152.4 cm (5') 02/26/2025 2:12 PM CDT Body Mass Index 29.76 02/26/2025 2:12 PM CDT Plan of Treatment Health Maintenance Due Date Last Done Comments Depression Screening 1950 Hepatitis C Screening 1950 Osteoporosis Screening-Bone Density Scan 1948 Hepatitis B Screening 1966 Well Visit 65+ 2013 Fall Risk Assessment 11/19/2024 11/20/2023, 03/06/20 22 Covid-19 Vaccine (5 - 2024-2 6 season) 2025 10/29/2021, 06/23/2021, 11/10/2020, Additional history exists Influenza Vaccine (#1) 2025 , 04/28/2021, 04/08/2020, Additional history exists DTaP/Tdap/Td Vaccine (3 - Td or Tdap) 02/28/2029 02/28/2019, 07/28/2008, 07/09/1996 Zoster Vaccine Completed 06/25/2019, 02/07, 10/28/2010 Pneumococcal vaccine 65+ Completed 021, 11/19/2014, 04/11/2009 Breast Cancer Screening-Mammogram Discontinued 04/29/2024, 04/02/2023, 03/27/2022, Additional history exists Medical Devices Implanted Type Area Boat Camp Operator Device Identifier Shelf Expiration Date Model / Serial / Lot [employer] Vascade Mvp 6-12fr Venous Closure [id number] - [id number] - [id number] Implanted:Qty: 1 on 11/20/2023 by Matias Light MD at [facility] [employer] 08/23/2025 800-612C- [id number] / [id number] [id number] / [id number] [employer] Vascade Mvp 6-12fr Venous Closure [id number] - [id number] - [id number] Implanted:Qty: 1 on 11/20/2023 by Matias Light MD at [facility] [employer] 09/03/2025 800-612C- 10U / [id number] / [id number] [employer] Vascade Mvp 6-12fr Venous Closure [id number] - [id number] - [id number] Implanted:Qty: 1 on 11/20/2023 by Matias Light MD at [facility] [employer] 08/23/2025 800-612C- 10U / [id number] [id number] / [id number] [employer] Device Vascular Closure Femoral Artery Bioabsorbable Dual Method Vascade 6-7fr Collagen [id number] - [id number] - [id number] Implanted:Qty: 1 on 11/20/2023 by Matias Light MD at [facility] [employer] 08/27/2025 [id number] 05U / [id number] [id number] / [id number] Rt Total Knee Arthroplasty Right: Knee Lumbar Spine Fusion Hardware,Rods/Scr ews Spine Lumbar Procedures Procedure Name Priority Date/Time Associated Diagnosis Comments SCREENING MAMMOGRAM BILATERAL W LUCIANO Schedule Routine, Read Routine (OP Routine) 04/29/2024 10:05 AM CDT Malignant neoplasm of left breast in female, estrogen receptor negative, unspecified site of breast (HCC) from Last 3 Months or Most Recently Relevant to Health Maintenance Results * Screening Mammogram Bilateral W Luciano (04/29/2024 10:05 AM CDT) Anatomical Region Laterality Modality Breast Bilateral Mammography Narrative 04/30/2024 2:43 PM CDT Mammogram Technique: Bilateral Digital Breast Tomosynthesis, Bilateral C-view 2D Screening mammogram. Views obtained: bilateral craniocaudal and bilateral mediolateral oblique. Computer Aided Detection was performed. Mammogram Findings: The present examination has been compared to prior imaging studies performed at [facility] on 03/09/2021, and at [facility] on 03/27/2022 and 04/02/2023. The breasts are extremely dense, which lowers the sensitivity of mammography. There are post breast conservation therapy changes in the left breast. There is no suspicious abnormality in either breast. Impression: There is no mammographic evidence of malignancy. Annual screening mammography is recommended. Consider breast MRI for supplemental screening given the patient's extremely dense breast tissue. OVERALL FINAL ASSESSMENT: BI-RADS CATEGORY 2: Benign. Procedure Note Funmilayo Allen MD - 04/30/2024 Mammogram Technique: Bilateral Digital Breast Tomosynthesis, Bilateral C-view 2D Screening mammogram. Views obtained: bilateral craniocaudal and bilateral mediolateral oblique. Computer Aided Detection was performed. Mammogram Findings: The present examination has been compared to prior imaging studies performed at [facility] on 03/09/2021, and at [facility] on 03/27/2022 and 04/02/2023. The breasts are extremely dense, which lowers the sensitivity of mammography. There are post breast conservation therapy changes in the left breast. There is no suspicious abnormality in either breast. Impression: There is no mammographic evidence of malignancy. Annual screening mammography is recommended. Consider breast MRI for supplemental screening given the patient's extremely dense breasttissue. OVERALL FINAL ASSESSMENT: BI-RADS CATEGORY 2: Benign. Cheryl Mccormick MD IMG MAMMO PROCEDURES Final Resul t from Last 3 Months or Most Recently Relevant to Health Maintenance Insurance [employer] AET MEDICARE Care Teams Construction Estimator Relationship Specialty Start Date End Date Jillian Swenson MD PCP - General 02/09/17 Cheryl Mccormick MD [address] [facility] [address] [place] [address] Medical Oncologist/Vp Clinical Medical Oncology 09/07/20
--- OUTSIDE RECORDS SUMMARY | 2025-04-13 18:30 | XMS_ITS | Encounter Summary ---
Author Organization [facility] Address [address] [place] [address] Phone Care Team Providers Care Polymer Chemist Name Role Phone Jillian Swenson MD Primary Care Provider + Cheryl Mccormick MD Unavailable Encounter Details Date Type Department Care Team (Late st Contact Info) Description 02/27/2024 Telephone [facility] Medicine Oncology [address] [place] [address] Vee Stoddard, B.A. Social History Tobacco Use Types Packs/Day Years Used Date Smoking Tobacco: Never Smokeless Tobacco: Never Alcohol Use Standard Drinks/Week Comments Yes 3 [...] on file Legal Sex Female 1:06 AM SEMICONDUCTOR WAFER INSPECTOR Gender Identity Female 06/08/2020 9:13 AM SEMICONDUCTOR WAFER INSPECTOR Sexual Orientation Straight 06/08/2020 9: 13 AM SEMICONDUCTOR WAFER INSPECTOR documented as of this encounter Plan of Treatment Not on file documented as of this encounter Visit Diagnoses Not on filedocumented in this encounter Care Teams Polymer Chemist Relationship Specialty Start Date End Date Jillian Swenson MD PCP - General 02/09/17 Cheryl Mccormick MD [address] [facility] [address] [place] [address] Medical Oncologist/Stone And Concrete Washer Medical Oncology 09/07/20 documented as of this encounter
--- OUTSIDE RECORDS SUMMARY | 2025-04-13 18:30 | XMS_ITS | Encounter Summary ---
Author Organization [facility] Address [address] [place] [address] Phone Care Team Providers Care Hand Method Lasting Machine Operator Name Role Phone Jillian Swenson MD Primary Care Provider + Cheryl Mccormick MD Unavailable Encounter Details Date Type Department Care Team (Late st Contact Info) Description 08/22/2023 Telephone [facility] Medicine Oncology [address] [facility] [address] [place] [address] Vee Stoddard, B.A. Social History Tobacco Use Types Packs/Day Years Used Date Smoking Tobacco: Never Smokeless Tobacco: Never Alcohol Use Standard Drinks/Week Comments Yes 3 (1 standard drink = 0.6 oz pur e alcohol) AUDIT-C Answer Date Recorded Frequency of Alcohol Consumption 2-3 times a wee k 01/23/2019 Average Number of Drinks Not on file 019 Frequency of Binge Drinking Not on file 01/06 Personal Safety Answer Date Recorded Have you ever been in or are you currently in a harmful physical or emotional relationship or is someone making you feel afraid or unsafe? Denies 04/10/2023 Comments No Sex and Gender Information Value Date Recorded Sex Assigned at Not on file Legal Sex Female 1:06 AM RECONCILER Gender Identity Female 06/08/2020 9:13 AM RECONCILER Sexual Orientation Straight 06/08/2020 9: 13 AM RECONCILER documented as of this encounter Plan of Treatment Not on file documented as of this encounter Visit Diagnoses Not on filedocumented in this encounter Care Teams Hand Method Lasting Machine Operator Relationship Specialty Start Date End Date Jillian Swenson MD PCP - General 02/09/17 Cheryl Mccormick MD [address] [facility] [address] [place] [address] Medical Oncologist/Tanning Drum Operator Medical Oncology 09/07/20 documented as of this encounter
--- OUTSIDE RECORDS SUMMARY | 2025-04-13 18:30 | XMS_ITS ---
Author Organization [facility] Address [address] [place] [address] Care Team Providers Care Court Of Appeals Judge Name Role Phone Jillian Swenson MD Primary Care Provider + Cheryl Mccormick MD Unavailable Active Problems Problem Noted Date Diagnosed Date History of chronic gastritis 02/26/2025 Swallowing problem 02/26/2025 Overview (02/26/2025): food goes down wrong pipe frequently pt states GERD with esophagitis 02/26/2025 Diverticulosis of intestine, part unspecified, without perforation or abscess with bleeding 02/26/2025 History of COVID-19 02/26/2025 Overview (02/26/2025): .2020 Itching 02/26/2025 Sciatica 02/26/2025 Spinal stenosis, lumbosacral region 02/26/2025 TMJ arthralgia 02/26/2025 Urge incontinence 02/26/2025 Venous insufficiency (chronic) (peripheral) 02/07 Essential hypertension 02/26/2025 High blood pressure 02/26/2025 Peripheral vascular disease, unspecified 025 Overview (02/26/2025): Dr. [id number] incompetent cooker sulfite in L calf with minimal venous valvular [...] 02/25/2024 Pure hypercholesterolemia 02/25/2024 Unspecified atherosclerosis of council arteries of extremities, unspecified extremity 02/25/2024 Atrial fibrillation with RVR 07/30/2023 Fatigue 07/30/2023 MARCO ANTONIO (obstructive sleep apnea) 05/16/2023 Morbid (severe) obesity due to excess calories 1 07/16/2022 Osteoarthritis of right glenohumeral joint 04/09 Persistent atrial fibrillation 12/13/2022 Assessment & Plan (07/26/2023 5:04 PM SUPERVISOR TUMBLERS): The patient has symptomatic persistent atrial fibrillation [...] study and ablation. The patient has a [id number] score of 3. I have therefore recommended continued anticoagulation for thromboprophylaxis. My office will make the appropriate arrangements. From: July, Ene LS, Asad OLMOS, Mario H, Matthew ROBB, Hugo JE, Reji ANGELIQUE, Emmanuel PT, Satya RENEE, ME, Georgi KT, Nikhil RL, Yassine WG, Candis PJ, Deborah CM, Ekaterina CW. 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 Overview (12/16/2018): Added automatically from request for surgery [id number] Malignant neoplasm of left b reast in female, estrogen receptor negative 02/25/2018 Cervical sympathetic dystrophy 04/16/2017 Skin ulcer of left lower leg, limited to breakdo wn of skin 04/12/2017 Atherosclerosis of council ar zain of left lower extremity with ulceration of ankle 02/19/2017 Neoplasm of skin of eyelid 01/07/2016 Osteoarthritis of knee, unilateral 04/13/2015 Hyperparathyroidism 11/22/2013 Overview (10/12/2016): HYPERPARATHYROIDISM NOS Vitamin D deficiency 11/22/2013 Overview (10/12/2016): VITAMIN D DEFICIENCY NOS Obesity with body mass index 30 or greater 06/24 Morbid obesity 02/08/2012 Fusion of spine 2009 Current Treatment and Therapy Plans IV Maintenance Therapy Plan* Plan Start Date:10/18/2023 Plan Provider:Cheryl Mccormick MD Linked Problems Malignant neoplasm of lower- outer quadrant of left breast of female, estrogen receptor negative (HCC) Treatment Medications No medications scheduled. Past Treatment and Therapy Plans No past plan information found. Lifetime Dose Tracking * Chemical Lifetime Dose Automatic Entry Manual Entr y Fluoro Time 2.9 minutes 0 minutes 2.9 minutes Air kerma at the reference point (Ka,r) 282 mGy 0 mGy 282 mGy Resolved Problems Problem Noted Date Diagnosed Date Resolved Date Family history of prostate cancer 06/25/2020 12/23/2020 Dyslipidemia 11/19/2019 12/12/2021
--- OUTSIDE RECORDS SUMMARY | 2025-04-13 18:30 | XMS_ITS | Encounter Summary ---
Author Organization [facility] Healthcare Address [address] [place] [address] Care Team Providers Care Practice Business Asst Name Role Phone Jillian Swenson MD Primary Care Provider + Cheryl Mccormick MD Unavailable Encounter Details Date Type Department Care Team (Late st Contact Info) Description 10/07/2020 Telephone [facility] Imaging [id number] [place] [address] Flaquita Wilson, RT Social History Tobacco Use Types Packs/Day Years Used Date Smoking Tobacco: Never Smokeless Tobacco: Never Alcohol Use Standard Drinks/Week Comments Yes 3 (1 standard drink = 0.6 oz pur e alcohol) AUDIT-C Answer Date Recorded Frequency of Alcohol Consumption 2-3 times a wee k 01/23/2019 Average Number of Drinks Not on file 019 Frequency of Binge Drinking Not on file 01/06 Comments No Sex and Gender Information Value Date Recorded Sex Assigned at Not on file Legal Sex Female 1:06 AM COMPO CONVEYOR OPERATOR Gender Identity Female 06/08/2020 9:13 AM COMPO CONVEYOR OPERATOR Sexual Orientation Straight 06/08/2020 9: 13 AM COMPO CONVEYOR OPERATOR documented as of this encounter Plan of Treatment Not on file documented as of this encounter Visit Diagnoses Not on filedocumented in this encounter Care Teams Practice Business Asst Relationship Specialty Start Date End Date Jillian Swenson MD PCP - General 02/09/17 Cheryl Mccormick MD [address] [place] [address] [address] [place] [address] Medical Oncologist/Design Maker Medical Oncology 09/07/20 documented as of this encounter
[2025-04-13 18:31] VITALS: BP 144/96; PULSE 72; RESP 18; TEMP 36.5; O2SAT 99
--- NOTE | 2025-04-13 18:33 | ED.FALL ---
HPI - Fall General Chief Complaint: Fall <Nahid Watkins APRN - Last Filed: 04/13/25 18:35> Stated Complaint: fall. no loc. takes eliquis hit head <Nahid Watkins APRN - Last Filed: 04/13/25 18:35> Time Seen by Provider: 04/13/25 19:11 <Nahid Watkins APRN - Last Filed: 04/13/25 18:35> Focused HPI: 74-year-old female on Eliquis for AFib presents to the ER for injury sustained in a mechanical KASIA left. Patient states that she tripped over some rocks, landing on her left wrist, left side of her head. Denies LOC or EMS. Denies neck pain. No other injuries. GENERAL: Well-appearing, well-nourished, and in no acute distress. HEAD: Normocephalic, atraumatic. CHEST: Clear to auscultation. No respiratory distress. HEART: Regular rate and rhythm. NEURO: Alert and oriented x3. Patient screened in triage and initial orders placed. Additional care and disposition to be based upon diagnostic testing and treatment. <Nahid Watkins APRN - Last Filed: 04/13/25 18:35> Source: patient and family <Elliot Booker MD - Last Filed: 04/13/25 21:40> Mode of arrival: ambulatory <Elliot Booker MD - Last Filed: 04/13/25 21:40> History of Present Illness HPI Narrative: 74-year-old with a history of hypertension, hyperlipidemia, AFib on Eliquis here with a complains of fall. Patient states that she tripped on a stone and fell forward denies LOC complains of pain and swelling around the left on bed. She also complains of pain in the left wrist area. Denies any pelvic pain <Elliot Booker MD - Last Filed: 04/13/25 21:40> Onset (ago): hour(s) (6) <Elliot Booker MD - Last Filed: 04/13/25 21:40> Fall from: standing <Elliot Booker MD - Last Filed: 04/13/25 21:40> Fall witnessed: yes, by family <Elliot Booker MD - Last Filed: 04/13/25 21:40> Place fall occurred: home <Elliot Booker MD - Last Filed: 04/13/25 21:40> Loss of consciousness: none <Elliot Booker MD - Last Filed: 04/13/25 21:40> Symptoms prior to fall: none <Elliot Booker MD - Last Filed: 04/13/25 21:40> Context: tripped/slipped <Elliot Booker MD - Last Filed: 04/13/25 21:40> Location of injury: face <Elliot Booker MD - Last Filed: 04/13/25 21:40> Related Data Home Medications: Home Medications ?Medication ?Instructions ?Recorded ?Confirmed ?Last Taken ?Type calcium carbonate (Calcium 600) 600 mg PO HS 11/04/19 04/08/25 03/24/23 History raloxifene 60 mg tablet 60 mg PO DAILY 03/02/21 04/08/25 03/26/23 08:00 History cholecalciferol (vitamin D3) 50 50 mcg PO HS 06/09/22 04/08/25 03/24/23 History mcg (2,000 unit) capsule apixaban 5 mg tablet (Eliquis) 5 mg PO BID 03/06/23 04/08/25 03/26/23 08:00 History tirzepatide (weight loss) 5 mg/0.5 5 mg subcut WEEKLY 12/18/24 04/08/25 Unknown History mL subcutaneous pen injector (Zepbound) <Nahid Watkins APRN - Last Filed: 04/13/25 18:35> Allergies/Adverse Reactions: Allergies Allergy/AdvReac Type Severity Reaction Status Date / Time adhesive tape Allergy Unknown Rash Verified 04/13/25 18:50 cephalexin Allergy Unknown throat Verified 04/13/25 18:50 closing diazepam Allergy Unknown mental Verified 04/13/25 18:50 status change Penicillins Allergy Unknown unknown Verified 04/13/25 18:50 <Nahid Watkins APRN - Last Filed: 04/13/25 18:35> Review of Systems Review of Systems: All systems reviewed & are unremarkable except as noted in HPI and below <Elliot Booker MD - Last Filed: 04/13/25 21:40> Constitutional: Constitutional: Reports no additional constitutional complaints <Elliot Booker MD - Last Filed: 04/13/25 21:40> Eyes: Eyes: Reports no additional eye complaints <Elliot Booker MD - Last Filed: 04/13/25 21:40> ENT: Reports system reviewed and no additional complaints, except as documented <Elliot Booker MD - Last Filed: 04/13/25 21:40> Cardiovascular: Cardiovascular: Reports no additional cardiovascular complaints <Elliot Booker MD - Last Filed: 04/13/25 21:40> Gastrointestinal: Gastrointestinal: Reports no additional gastrointestinal complaints <Elliot Booker MD - Last Filed: 04/13/25 21:40> Musculoskeletal: Musculoskeletal: Reports no additional musculoskeletal complaints and Reports as per HPI <Elliot Booker MD - Last Filed: 04/13/25 21:40> PMFSH Past Medical History Medical History: Medical History UTI symptoms Atrial fibrillation Abnormal gait Lip laceration Syncope, vasovagal Bilateral foot pain Urticaria (10/2020) Abnormal magnetic resonance imaging of left breast L breast biopsy 2020: no cancer. COVID-19 Hepatitis C antibody test negative (03/11/19) Arthralgia of hand Atypical chest pain Drug-induced polyneuropathy HX: breast cancer on raloxifene Chest pain <Nahid Watkins APRN - Last Filed: 04/13/25 18:35> Surgical History Surgical History: Surgical History History of cardiac ablation for atrial fibrillation History of radiofrequency ablation procedure for cardiac arrhythmia History of total left knee replacement (~04/2022) Hx of breast biopsy negative <Nahid Watkins APRN - Last Filed: 04/13/25 18:35> Family History Family History: Family History Father Family history of glaucoma Family history of Alzheimer's disease Family history of dementia, Onset Age: 80 Mother Family history of glaucoma Hypertension Cerebrovascular accident Sibling Family history of glaucoma Malignant neoplasm of prostate Family history of malignant neoplasm of breast in first degree relative Alzheimer's dementia Other Family history of elevated blood lipids Family history of malignant neoplasm of breast <Nahid Watkins APRN - Last Filed: 04/13/25 18:35> Social History Social History: Social History Smoking status: Never smoker Second hand tobacco smoke exposure: No Alcohol intake: current Drinks per week: 1 Alcohol use details: drinks 1-2 times a week wine Substance use: never Substance use type: does not use Lack of Transportation: No Lack of Food: Never True Current Housing: I Have Housing Concerned About Future Housing: No Difficulty Paying Gas/Electric Bills: No Difficulty Paying for Meds: No Currently Unemployed: No Education: Master's Degree or Higher Difficulty w/ Childcare or Family Care: No Living arrangements: with family Occupation/Education: retired Gender identity (if verbalized by the patient): Female Sexual Orientation (if Verbalized by the Patient): Straight or Heterosexual Spiritual care concerns: No Agree to blood products: Yes <Nahid Watkins APRN - Last Filed: 04/13/25 18:35> Exam Narrative: GENERAL: Well-appearing, well-nourished, and in no acute distress. HEAD: Normocephalic, atraumatic. EYES: PERRLA and EOMI. Left orbital hematoma ENT: Nares clear, no rhinorrhea or epistaxis. Mucous membranes moist. NECK: Supple. CHEST: Clear to auscultation. No respiratory distress. HEART: Regular rate and rhythm. No murmur heard. Normal peripheral pulses. ABDOMEN: Soft, nontender, nondistended, normal active bowel sounds. EXTREMITIES: Normal range of motion. No edema. Examination of the left wrist shows no obvious deformity. SKIN: Warm, dry, no rash. NEURO: No focal deficits. Alert and oriented x3. PSYCH: Normal mood and affect. <Elliot Booker MD - Last Filed: 04/13/25 21:40> Course Course Emergency Course: Patient comfortably resting informed her about the CT findings. I discussed with the ERP at [facility] will accept the pt in transfer , wants to drive her Jim <Elliot Booker MD - Last Filed: 04/13/25 21:40> Vital Signs Vital signs: Vital Signs Temperature 36.5 C 10/06/25 18:31 Pulse Rate 72 04/13/25 18:31 Respiratory Rate 18 04/13/25 18:31 Blood Pressure 144/96 H 04/13/25 18:31 Pulse Oximetry 99 04/13/25 18:31 Oxygen Delivery Room Air 04/13/25 18:31 Temperature 36.5 C 04/13/25 18:31 Pulse Rate 72 04/13/25 18:31 Respiratory Rate 18 04/13/25 18:31 Blood Pressure 144/96 H 04/13/25 18:31 Pulse Oximetry 99 04/13/25 18:31 Oxygen Delivery Room Air 04/13/25 18:31 <Nahid Watkins APRN - Last Filed: 04/13/25 18:35> Vital Signs Temperature 36.5 C 04/13/25 18:31 Pulse Rate 72 04/13/25 18:31 Respiratory Rate 18 04/13/25 18:31 Blood Pressure 144/96 H 04/13/25 18:31 Pulse Oximetry 99 04/13/25 18:31 Oxygen Delivery Room Air 04/13/25 18:31 Temperature 36.5 C 04/13/25 18:31 Pulse Rate 72 04/13/25 18:31 Respiratory Rate 18 04/13/25 18:31 Blood Pressure 144/96 H 04/13/25 18:31 Pulse Oximetry 99 04/13/25 18:31 Oxygen Delivery Room Air 04/13/25 18:31 <Elliot Booker MD - Last Filed: 04/13/25 21:40> Transfer Transfered to: [facility] <Elliot Booker MD - Last Filed: 04/13/25 21:40> MDM - Fall Imaging Data Radiologist's impression: ITS Impressions Head CT 04/13/25 19:28 IMPRESSION: 1. No acute intracranial findings. 2. Left facial and periorbital fractures. Refer to CT face. Head/Cervical Spine/Facial Bones CT 04/13/25 20:19 IMPRESSION: 1. Fracture of the inferior wall of the left orbit with up to 6 mm cephalad displacement of a small fragment along the lateral inferior wall with small hematoma and soft tissue gas in the inferior orbit. 2. Severe cervical spondylosis with anterior fusion at C4-C5 and C5-C6 but without acute osseous abnormality. 3. Chronic high attenuation material within the asymmetrically small right maxillary sinus suggesting sequela of chronic sinusitis. Additional high attenuation material in the left maxillary sinus new since the prior study which could represent either additional sequela of chronic sinusitis or blood related to the inferior left orbital wall fracture. <Elliot Booker MD - Last Filed: 04/13/25 21:40> Discharge Plan Discharge Clinical Impression: Orbital fracture Qualifiers: Encounter type: initial encounter Fracture type: closed Qualified Code(s): S02.85XA - Fracture of orbit, unspecified, initial encounter for closed fracture Left wrist sprain Qualifiers: Encounter type: initial encounter Wrist sprain location: unspecified location Qualified Code(s): S63.502A - Unspecified sprain of left wrist, initial encounter <Nahid Watkins APRN - Last Filed: 04/13/25 18:35> Patient Disposition: [facility] <Nahid Watkins APRN - Last Filed: 04/13/25 18:35> Condition: Stable <Nahid Watkins APRN - Last Filed: 04/13/25 18:35> Patient Language: Gabonese <Nahid Watkins APRN - Last Filed: 04/13/25 18:35> Prescriptions: No Action raloxifene 60 mg tablet 60 mg PO DAILY cholecalciferol (vitamin D3) 50 mcg (2,000 unit) capsule 50 mcg PO HS calcium carbonate [Calcium 600] 600 mg calcium (1,500 mg) tablet 600 mg PO HS (DME) cpap See Rx Instructions .Route .MEDSUPPLY Qty: 1 0RF Rx Instructions: q hs. 14cm h20 cpap, resmed full face mask,10 min ramp time,with heated humidity miscellaneous medical supply Misc See Rx Instructions miscellaneous .COMPLEX Qty: 1 0RF Rx Instructions: q hs. 14cm h20 cpap, resmed full face mask,10 min ramp time,with heated humidity Zepbound 5 mg/0.5 mL pen injector 5 mg subcut WEEKLY famotidine 20 mg tablet 20 mg PO BID Qty: 60 3RF nitroglycerin [Nitrostat] 0.3 mg tablet, sublingual 0.3 mg SUBLINGUAL Q5M PRN (Reason: chest pain) Qty: 20 0RF Rx Instructions: until response; do not exceed 3 doses per episode sulfamethoxazole-trimethoprim [Bactrim DS] 800-160 mg tablet 1 tablet PO Q12H Qty: 14 0RF Eliquis 5 mg tablet 5 mg PO BID atorvastatin 20 mg tablet See Rx Instructions .ROUTE .COMPLEX Qty: 90 1RF Dose Instruction: TAKE 1 TABLET DAILY Rx Instructions: TAKE 1 TABLET DAILY metoprolol succinate 50 mg tablet extended release 24 hr 50 mg PO HS Qty: 90 3RF oxybutynin chloride 5 mg tablet 5 mg PO BID Qty: 180 1RF diclofenac sodium 50 mg tablet,delayed release (DR/EC) 50 mg PO BID Qty: 180 1RF <Nahid Watkins APRN - Last Filed: 04/13/25 18:35> Follow-up/Referrals: Jillian Swenson MD [Primary Care Provider, Family Practice] <Nahid Watkins APRN - Last Filed: 04/13/25 18:35> Time of Disposition: 21:37 <Nahid Watkins APRN - Last Filed: 04/13/25 18:35> 21:37 <Elliot Booker MD - Last Filed: 04/13/25 21:40>
--- NOTE | 2025-04-13 18:36 | PC.NURSE ---
Radiology called for Priority CT scan
--- OUTSIDE RECORDS SUMMARY | 2025-04-13 20:39 | XMS_ITS | Encounter Summary ---
Author Organization [facility] Healthcare Address [address] [place] [address] Care Team Providers Care Dopster Name Role Phone Jillian Swenson MD Primary Care Provider + Cheryl Mccormick MD Unavailable Encounter Details Date Type Department Care Team (Late st Contact Info) Description 10/07/2020 Telephone [facility] Imaging [address] [place] [address] Flaquita Wilson, RT Social History Tobacco [...] on file Legal Sex Female 1:06 AM HAND FLESHER Gender Identity Female 06/08/2020 9:13 AM HAND FLESHER Sexual Orientation Straight 06/08/2020 9: 13 AM HAND FLESHER documented as of this encounter Plan of Treatment Not on file documented as of this encounter Visit Diagnoses Not on filedocumented in this encounter Care Teams Dopster Relationship Specialty Start Date End Date Jillian Swenson MD PCP - General 02/09/17 Cheryl Mccormick MD [address] [place] [address] [address] [place] [address] Medical Oncologist/Credit Office Manager Medical Oncology 09/07/20 documented as of this encounter
--- OUTSIDE RECORDS SUMMARY | 2025-04-13 20:40 | XMS_ITS | Encounter Summary ---
Author Organization [facility] Address [address] [place] [address] Phone Care Team Providers Care Medical Staff Specialist Name Role Phone Jillian Swenson MD Primary Care Provider + Cheryl Mccormick MD Unavailable Encounter Details Date Type Department Care Team (Late st Contact Info) Description 02/27/2024 Telephone Health system Medicine Oncology [address] [facility] [address] [place] [address] Vee Stoddard, B.A. Social History [...] on file Legal Sex Female 1:06 AM FACE HARDENER Gender Identity Female 06/08/2020 9:13 AM FACE HARDENER Sexual Orientation Straight 06/08/2020 9: 13 AM FACE HARDENER documented as of this encounter Plan of Treatment Not on file documented as of this encounter Visit Diagnoses Not on filedocumented in this encounter Care Teams Medical Staff Specialist Relationship Specialty Start Date End Date Jillian Swenson MD PCP - General 02/09/17 Cheryl Mccormick MD [address] [facility] [address] [place] [address] Medical Oncologist/Solar Pool Heating Installer Medical Oncology 09/07/20 documented as of this encounter
--- OUTSIDE RECORDS SUMMARY | 2025-04-13 20:40 | XMS_ITS | Clinical Summary ---
Author Organization [facility] Address [address] [place] [address] Care Team Providers Care Menswear Salesperson Name Role Phone Deejay Mari MD Unavailable [phone] Lenny Lebron MD Unavailable [phone] Jillian Swenson MD Primary Care Provider [phone] Lenny Lebron MD Unavailable [phone] Source Comments [facility],non-owned Affiliates and Associated Physician Practices is amultiple site organization consisting of ambulatory clinics and hospital sitesin [place], [place], [place] and [place]. This disclosure is being madepursuant to the Care Everywhere program and may not contain all information available regarding this patient. Last updated 18.[facility] Allergies Active Allergy Reactions Criticality Noted Date Comments Adhesive Sensitivity Rash Medium 01/23/2019 Bandaids cause rash/ paper tape OK Diazepam Other High 09/06/2017 Very lethargic Yquoxkur-Bxsaemymmk-Weosgch in Rash Medium 03/27/2022 Penicillin G Potassium [...] mg by mouth once daily Active Multiple Vitamins-Alderton als (MULTIVITAMIN GUMMIES WOMENS PO) Take by [...] with unspecified severity 02/25/2024 Unspecified atherosclerosis of [place] arteries of extremities, unspecified extremity 02/25/2024 Morbid [...] Description 03/23/2025 3:30 PM CDT Office Visit [facility] [address], [address] [place] [id number] Deejay Mari MD Presence of left artificial knee joint (Primary Dx) 03/23/2025 2:35 PM CDT Ancillary Procedure [facility] - Radiology [address] [place] [address] Deejay Mari MD Presence of left artificial knee joint 02/24/2025 Telephone [facility] [address], [address] [place] [address] Deejay Mari MD Reschedule Appointment from Last [...] Sex Assigned at Female 07/14/2021 5:28 PM OPTO MECHANICAL ENGINEER Legal Sex Female 4:23 AM OPTO MECHANICAL ENGINEER Gender Identity Female 07/14/2021 5:28 PM OPTO MECHANICAL ENGINEER Sexual Orientation Straight 07/14/2021 5: 28 PM OPTO MECHANICAL ENGINEER Last Filed Vital Signs Vital Sign [...] [address], [address] [place] [id number] Enrico Guaman MD [address] [place] [...] this topic Medical Devices Implanted Type Area Master Craftsman Device Identifier Shelf Expiration Date Model / Serial / Lot Holden Bone Gladstone-G Hv 40/20 Implanted:Qty: 1 on 04/14/2022 by Deejay Mari MD at [facility] Left: Knee [employer] 08/04/2023 600-15-100 / / [id number] Tray Tib 71mm Kn Cocr I Beam Implanted:Qty: 1 on 04/14/2022 by Deejay Mari MD at [facility] Left: Knee Jessica [employer]omet 12/09/2031 [id number] / / [id number] Cmpnt Fem Kn Lt Cr Cmnt Prm Vngrd Intlk Implanted:Qty: 1 on 04/14/2022 by Deejay Mari MD at [facility] Left: Knee [employer] 02/01/2032 [id number] / / [id number] Brng [id number] Vngrd Arcm Kn Ant Stab Implanted:Qty: 1 on 04/14/2022 by Deejay Mari MD at [facility] Left: Knee [employer] 02/07/2027 [id number] / / [id number] Addison Tape Cerclage Implanted:Qty: 1 on 04/14/2022 by Deejay Mari MD at [facility] Left: Knee 08/08/2026 [id number] / / [id number] Screw 5mm 26mm Shldr Lck Rsp Glnd Bsplt Implanted:Qty: 1 on 04/09/2023 by Enrico Guaman MD at [facility] Right: Shoulder [employer] 01/24/2029 506-03-126 / / [id number] Head Glnd 32mm Rsp -4mm Ofst Shldr Rtn Implanted:Qty: 1 on 04/09/2023 by Enrico Guaman MD at [facility] Right: Shoulder [employer] 01/19/2029 508-32-103 / / [id number] Stem Hum 48mm 6mm Sm Shl Implanted:Qty: 1 on 04/09/2023 by Enrico Guaman MD at [facility] Right: Shoulder [employer] 11/28/2028 533-06-048 / / [id number] Spcr Sm 8mm Altivate Rvrs Implanted:Qty: 1 on 04/09/2023 by Enrico Guaman MD at [facility] Right: Shoulder [employer] 01/01/2029 533-08-000 / / [id number] Ins Sckt Djo Srg Altivate Rvrs 32mm Sm Implanted:Qty: 1 on 04/09/2023 by Enrico Guaman MD at [facility] Right: Shoulder [employer] 01/24/2028 509-03-032 / / [id number] Bsplt Glnd 30mm Rsp Shldr P2 Strl Lf Implanted:Qty: 1 on 04/09/2023 by Enrico Guaman MD at [facility] Right: Shoulder [employer] 01/03/2029 508-32-204 / / [id number] Screw 5mm 14mm Shldr Lck Rsp Glnd Bsplt Implanted:Qty: 1 on 04/09/2023 by Enrico Guaman MD at [facility] Right: Shoulder [employer] 02/09/2029 506-03-114 / / [id number] Screw 5mm 14mm Shldr Lck Rsp Glnd Bsplt Implanted:Qty: 1 on 04/09/2023 by Enrico Guaman MD at [facility] Right: Shoulder [employer] 01/24/2029 506-03-114 / / [id number] Screw 5mm 26mm Shldr Lck Rsp Glnd Bsplt Implanted:Qty: 1 on 04/09/2023 by Enrico Guaman MD at [facility] Right: Shoulder [employer] 01/02/2029 506-03-126 / / [id number] Procedures Procedure Name Priority Date/Time Associated Diagnosis Comments XR KNEE LEFT 3VW Routine 03/23/2025 2:40 PM CDT Presence of left artificial knee joint from Last 3 Months Results * XR Knee Left 3Vw (03/23/2025 2:40 PM CDT) Narrative [facility] [address] - 03/23/2025 2:40 PM CDT Please see progress note in Epic for results. us Deejay Mari MD DIAGNOSTIC IMAGING ORDERABLES Final Result [facility] [place] [address] from Last 3 Months Insurance Advance Directives Documents on File Type Date Recorded Patient Health Care Assistant Expl anation Adv Directive/Living Will/POA 12/05/2009 11:02 AM * Full Code (Latest Code Status on File) Date Activated Date Inactivated Comments 04/09/2023 11:50 AM 04/10/2023 2:18 PM * Full Code Date Activated Date Inactivated Comments 04/14/2022 11:38 AM 04/16/2022 3:24 PM * Full Code Date Activated Date Inactivated Comments 12/01/2009 10:45 AM 12/05/2009 1:13 AM Care Teams Menswear Salesperson Relationship Specialty Start Date End Date Jillian Swenson MD [address] [place] [id number] PCP - General 06/23/22 [place] [address] [address] [facility] [address] [place] [address] Orthopedic Surgery 04/23/14 Lenny Lebron MD [address] [place] [address] [place] [address] Cardiovascular Disease 02/20/22 Lenny Lebron MD [address] [place] [address] [place] [address] Cardiovascular Disease 03/07/23
--- OUTSIDE RECORDS SUMMARY | 2025-04-13 20:40 | XMS_ITS ---
Author Organization [facility] Address [address] [place] [address] Care Team Providers Care Control Clerk Name Role Phone Jillian Swenson MD Primary [...] unspecified 025 Overview (02/26/2025): Dr. Ruiz10.6.17 incompetent welder fitter helper in L calf with minimal venous valvular [...] 02/25/2024 Pure hypercholesterolemia 02/25/2024 Unspecified atherosclerosis of [place] arteries of extremities, unspecified extremity 02/25/2024 Atrial fibrillation with RVR 07/30/2023 Fatigue 07/30/2023 MARCO ANTONIO (obstructive sleep apnea) 05/16/2023 Morbid (severe) obesity due to excess calories 1 07/16/2022 Osteoarthritis of right glenohumeral joint 04/09 Persistent atrial fibrillation 12/13/2022 Assessment & Plan (07/26/2023 5:04 PM BOTTOM STOP ATTACHER): The patient has symptomatic persistent atrial fibrillation [...] study and ablation. The patient has a [id number] score of 3. 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
--- OUTSIDE RECORDS SUMMARY | 2025-04-13 20:40 | XMS_ITS | Clinical Summary ---
Author Organization [facility] Address Count includes the [facility] [place] [address] Care Team Providers Care Warehouse Packer Name Role Phone Jillian Swenson MD Primary Care Provider [phone] Social History Tobacco Use Types Packs/Day Years [...] this topic Insurance [employer] MEDICARE Care Teams Warehouse Packer Relationship Specialty Start Date End Date Jillian Swenson MD [facility] [address] [place] [address] PCP - General FAMILY PRACTICE 04/24/24
--- OUTSIDE RECORDS SUMMARY | 2025-04-13 20:40 | XMS_ITS | Encounter Summary ---
Author Organization [facility] Address [address] [place] [address] Phone Care Team Providers Care Paperhanger Supervisor Name Role Phone Jillian Swenson MD Primary Care Provider + Cheryl Mccormick MD Unavailable Encounter Details Date Type Department Care Team (Late st Contact Info) Description 08/22/2023 Telephone [facility] Medicine Oncology [address] [place] [address] Vee Stoddard, B.A. Social History [...] on file Legal Sex Female 1:06 AM HOSPICE EXECUTIVE DIRECTOR Gender Identity Female 06/08/2020 9:13 AM HOSPICE EXECUTIVE DIRECTOR Sexual Orientation Straight 06/08/2020 9: 13 AM HOSPICE EXECUTIVE DIRECTOR documented as of this encounter Plan of Treatment Not on file documented as of this encounter Visit Diagnoses Not on filedocumented in this encounter Care Teams Paperhanger Supervisor Relationship Specialty Start Date End Date Jillian Swenson MD PCP - General 02/09/17 Cheryl Mccormick MD [address] [facility] [address] [place] [address] Medical Oncologist/Scale Model Maker Medical Oncology 09/07/20 documented as of this encounter
--- OUTSIDE RECORDS SUMMARY | 2025-04-13 20:40 | XMS_ITS | Clinical Summary ---
Author Organization [facility] Address [address] [place] [address] Care Team Providers Care Millstone Cleaner Name Role Phone Jillian Swenson MD Primary [...] unspecified 025 Overview (02/26/2025): Dr. 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 The patient has a [id number]-THFb score of 3. 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 Advanced Medicine 13th [place] [address] [place] [address] Liliane Moralez NP BARD1 gene mutation positive (Primary Dx); History of left breast cancer; Healthcare maintenance 02/13/2025 10:45 AM CDT Office Visit [facility] Sleep Medicine at [address] [place] [address] Birgit Montejo MD MARCO ANTONIO (obstructive sleep apnea) (Primary Dx); Hypersomnia; Morbid (severe) obesity due to excess calories (HCC); Insomnia, unspecified type 01/26/2025 2:00 PM CDT Office Visit [facility] Cardiology [address] [place] [address] Marco Sandoval MD Atrial fibrillation [...] Father Sylvester Glaucoma Father Sylvester Arthritis Mother [place] Cataracts Mother [place] Glaucoma Mother Padmini Hypertension Mother [place] Stroke Mother [place] Arthritis Sister Gris Cancer Sister Gris Cataracts [...] on file Legal Sex Female 1:06 AM BAG MACHINE ADJUSTER Gender Identity Female 06/08/2020 9:13 AM BAG MACHINE ADJUSTER Sexual Orientation Straight 06/08/2020 9: 13 AM BAG MACHINE ADJUSTER Obstetrics History Last Filed Vital Signs Vital [...] history exists Medical Devices Implanted Type Area Audio/Visual Operator Device Identifier Shelf Expiration Date Model / Serial / Lot [employer] Vascade Mvp 6-12fr Venous Closure [id number] - [id number] - [id number] Implanted:Qty: 1 on 11/20/2023 by Matias Light MD at [facility] Collagen [employer] 08/23/2025 800-612C- 10U / [id number] / [id number] [employer] Vascade Mvp 6-12fr Venous Closure [id number] - [id number] - [id number] Implanted:Qty: 1 on 11/20/2023 by Matias Light MD at [facility] Collagen [employer] 09/03/2025 800-612C- 10U / [id number] / [id number] [employer] Vascade Mvp 6-12fr Venous Closure [id number] - [id number] - [id number] Implanted:Qty: 1 on 11/20/2023 by Matias Light MD at [facility] Collagen [employer] 08/23/2025 800-612C- 10U / [id number] [id number] / [id number] [employer] Device Vascular Closure Femoral Artery Bioabsorbable Dual Method Vascade 6-7fr Collagen [id number] - [id number] - [id number] Implanted:Qty: 1 on 11/20/2023 by Matias Light MD at [facility] Collagen [employer] 08/27/2025 700-580I- 05U / [id number] [id number] / [id number] Rt Total Knee Arthroplasty Right: Knee [...] compared to prior imaging studies performed at [facility] on 03/09/2021, and at [facility] on 03/27/2022 and 04/02/2023. The breasts are [...] compared to prior imaging studies performed at [facility] on 03/09/2021, and at [facility] on 03/27/2022 and 04/02/2023. The breasts are [...] Most Recently Relevant to Health Maintenance Insurance [facility] MEDICARE [facility] MEDICARE AET MEDICARE Care Teams Millstone Cleaner Relationship Specialty Start Date End Date Jillian Swenson MD PCP - General 02/09/17 Cheryl Mccormick MD [address] [facility] [address] [place] [address] Medical Oncologist/Senior Automation Engineer Medical Oncology 09/07/20
== END 2025-04-13 22:13 | disposition short-term general hospital (02) ==
PROVIDERS: Emergency Provider Family Medicine; PCP Family Medicine
DX: S02.32XA Fracture of orbital floor, left side, initial encounter for closed fracture (principal); S63.502A Unspecified sprain of left wrist, initial encounter; E78.5 Hyperlipidemia, unspecified; I10 Essential (primary) hypertension; I48.91 Unspecified atrial fibrillation; Z98.1 Arthrodesis status; Z86.16 Personal history of COVID-19; Z85.3 Personal history of malignant neoplasm of breast; Z79.01 Long term (current) use of anticoagulants; Z96.652 Presence of left artificial knee joint; M47.812 Spondylosis without myelopathy or radiculopathy, cervical region; W18.09XA Striking against other object with subsequent fall, initial encounter
CPT/HCPCS: 70450; 70486; 72125; 73110; 99284

== ENCOUNTER 2025-06-23 12:24 | Outpatient (CLI) | payer MEDICARE, SELFPAY ==
--- NOTE | ~2025-06-23 | XR_ITS ---
EXAMINATION: XR ankle LT min 3V, 06/23/2025 12:32 MOTION PICTURE PHOTOGRAPHER HISTORY: Gen pain/swelling Lt ankle x 3 mos w/o injury COMPARISON: No comparisons available. Findings: No acute fracture or malalignment. Severe degenerative changes. Soft tissues unremarkable. Impression: No acute fracture or malalignment. Reviewed, dictated and finalized at location P. ON PICTURE PHOTOGRAPHER Impression: No acute fracture or malalignment.
== END 2025-06-23 12:25 | disposition home or self-care (01) ==
LOC: GOSHIMG 12:24
PROVIDERS: PCP Family Medicine; Visit Provider Family Medicine
DX: M25.572 Pain in left ankle and joints of left foot (principal)
CPT/HCPCS: 73610